=== PATIENT | male | born 1930 | race Caucasian/White ===

== ENCOUNTER 2018-04-10 13:17 | Inpatient (IN) | payer OTHER, MEDICARE ==
--- NOTE | 2018-04-10 13:50 | PDOC ---
History of Present Illness - General Chief Complaint: Lightheaded Stated Complaint: LIGHTHEADED, WEAKNESS Time Seen by Provider: 04/10/18 13:37 - History of Present Illness Initial Comments: 04/10/18 14:05 The patient is an 87 year old male with a history of HTN, HLD, Thyroid dysfunction who presents for evaluation of lightheadedness, fevers, and generalized weakness. The patient is accompanied by family who assists in providing the history. They note a 1 day history of generalized weakness and subjective fevers. They note that when the patient got up this morning, he experienced severe lightheadedness and generalized weakness prompting his presentation to the ED for further evaluation. He otherwise denies chills, SOB , chest pain, nausea, vomiting, abdominal pain, or changes with urination or bowel movements. Past History - Past Medical History Allergies/Adverse Reactions: Allergies Allergy/AdvReac Type Severity Reaction Status Date / Time No Known Drug Allergies Allergy Verified 04/10/18 13:24 Home Medications: Ambulatory Orders Atenolol [Tenormin -] 50 mg PO DAILY 07/10/14 Atorvastatin Ca [Lipitor -] 20 mg PO HS 07/10/14 Cholecalciferol (Vitamin D3) [Children's Replesta] 14,000 unit PO DAILY Finasteride [Proscar -] 5 mg PO HS 07/10/14 Levothyroxine [Synthroid -] 25 mcg PO DAILY 07/10/14 Silodosin [Rapaflo] 8 mg PO HS 07/10/14 Amlodipine Bes/Olmesartan Med [Amlodipine-Olmesartan 5-40 mg] 1 each PO DAILY COPD: No HTN: Yes Hypercholesterolemia: Yes Thyroid Disease: Yes - Suicide/Smoking/Psychosocial Hx Smoking History: Never smoked Have you smoked in the past 12 months: No Hx Alcohol Use: Yes (RARE) Substance Use Type: Alcohol Review of Systems - Review of Systems Comments:: 04/10/18 14:07 Constitutional: Subjective fever, Generalized weakness. No chills, malaise HEENT: No Rhinorrhea, nasal congestion, visual changes Cardiovascular: Lightheadedness. No chest pain, syncope, palpitations, Respiratory: No Cough, SOB, Hemoptysis, Gastrointestinal: No Abdominal pain, Nausea, Vomiting, Constipation, Diarrhea, Melena Genitourinary: No Dysuria, Frequency, Urgency, Hesitancy, Hematuria, Flank pain Musculoskeletal: No Myalgia, arthralgia Skin: No rashes, itching, bruising, pallor Neurologic: No Headache, Dizziness, Numbness, or Tingling Psychiatric: No Hallucinations. No SI or HI *Physical Exam - Vital Signs Last Vital Signs Temp Pulse Resp BP Pulse Ox 99 F 77 18 135/59 94 L 04/10/18 13:23 04/10/18 13:23 04/10/18 13:23 04/10/18 13:23 04/10/18 13:23 - Physical Exam Comments: 04/10/18 14:08 General Appearance: Nourished. No Apparent Distress HEENT: No Pharyngeal Erythema, Tonsillar Exudate, Tonsillar Erythema Neck: No Cervical Lymphadenopathy Respiratory/Chest: Lungs Clear, Normal Breath Sounds. No Crackles, Rales, Rhonchi, Wheezing Cardiovascular: Regular Rhythm, Regular Rate. 2/6 systolic murmur noted on exam. No Gallops, Rubs Gastrointestinal/Abdominal: Normal Bowel Sounds, Soft. No Guarding, Rebound, Tenderness Musculoskeletal: No CVA Tenderness Extremity: Normal Capillary Refill Integumentary: Normal Color, Dry, Warm Neurologic: Fully Oriented, Alert, Normal Mood/Affect, Normal Response, Heart Score/ECG Review #1 ECG reviewed & interpreted by me at: 14:10 General ECG Interpretation: Sinus Rhythm, Normal Rate, Normal Intervals, No acute ischemic changes ED Treatment Course - LABORATORY CBC & Chemistry Diagram: 04/11/18 06:00 04/11/18 06:00 Medical Decision Making - Medical Decision Making 04/10/18 14:10 The patient is an 87 year old male with a history of HTN, HLD, Thyroid dysfunction who presents for evaluation of lightheadedness, fevers, and generalized weakness. Differential includes but is not limited to: ACS, Arrhythmia, Infectious, Metabolic Derangement. Given the patient's history and physical exam, we will obtain a cbc, cmp, mag, phos, troponin, tsh, ekg, chest plain film to evaluate further for possible etiologies. We will treat with iv fluids and continue to monitor and reassess while here in the ED. 04/10/18 16:06 CBC demonstrates a small elevation in wbc. cmp, mag, phos, troponin, tsh are unremarkable. UA is unremarkable. Chest plain film is unremarkable. Given the patient's episodes of weakness and lightheadedness as well as risk factors, we believe he requires admission for further management. We discussed the case with Dr. Steiner who accepted the patient for admission. *DC/Admit/Observation/Transfer Diagnosis at time of Disposition: Lightheadedness, Dehydration - Discharge Dispostion Condition at time of disposition: Stable Decision to Admit order: Yes - Referrals - Patient Instructions - Post Discharge Activity
[2018-04-10] MEDS ORDERED: SODIUM CHLORIDE 1,000 ML IV STA (13:55)
--- NOTE | 2018-04-10 14:29 | PDOC ---
Attending Attestation - Resident Resident Name: Eddi Ovalle - ED Attending Attestation I have performed the following: I have examined & evaluated the patient, The case was reviewed & discussed with the resident, I agree w/resident's findings & plan, Exceptions are as noted - HPI HPI: 04/10/18 14:37 87-year-old male with history of hypertension, hyperlipidemia, thyroid disorder presents with generalized weakness, tactile fevers, lightheadedness since yesterday. The patient did not his recent illnesses or sick contacts. States he was in his usual state of health approximately 2 days ago. Yesterday, started developing feeling generally weak and lightheaded and difficulty ambulating. Denies chest pain or shortness of breath. Because of the symptoms, came to the ER. - Physicial Exam PE: 04/10/18 14:38 GENERAL: Awake, alert, and fully oriented, in no acute distress HEAD: No signs of trauma EYES: EOMI, sclera anicteric, conjunctiva clear ENT: Auricles normal inspection, hearing grossly normal, nares patent, NECK: Normal ROM, supple, LUNGS: Breath sounds equal, clear to auscultation bilaterally. No wheezes, and no crackles HEART: Regular rate and rhythm, normal S1 and S2, no murmurs, rubs or gallops ABDOMEN: Soft, nontender No guarding, no rebound. No masses EXTREMITIES: Normal range of motion, no edema. No clubbing or cyanosis. No cords, erythema, or tenderness NEUROLOGICAL: Cranial nerves II through XII grossly intact. Normal speech, SKIN: Warm, Dry, normal turgor, no rashes or lesions noted. - Medical Decision Making 04/10/18 14:38 Vital Signs Temp Pulse Resp BP Pulse Ox 99 F 77 18 135/59 94 L 04/10/18 13:23 04/10/18 13:23 04/10/18 13:23 04/10/18 13:23 04/10/18 13:23 87-year-old male presents with general weakness, tactile fevers and lightheadedness. I suspect patient may have an underlying infection such as urinary tract infection. Obtain labs, urinalysis, chest x-ray. Differential includes metabolic disarray and cardiac. EKG. Give IV fluids and reassess. 04/10/18 15:38 CBC, BMP 04/10/18 14:08 04/10/18 14:08 CMP Sodium 135 mmol/L (136-145) L 04/10/18 14:08 Potassium 4.5 mmol/L (3.5-5.1) 04/10/18 14:08 Chloride 99 mmol/L (98-107) 04/10/18 14:08 Carbon Dioxide 23 mmol/L (21-32) 04/10/18 14:08 Anion Gap 13 MMOL/L (8-16) 04/10/18 14:08 BUN 22 mg/dL (7-18) H 04/10/18 14:08 Creatinine 1.4 mg/dL (0.55-1.3) H 04/10/18 14:08 Creat Clearance w eGFR 47.94 (>60) 04/10/18 14:08 Random Glucose 124 mg/dL (74-106) H 04/10/18 14:08 Calcium 8.1 mg/dL (8.5-10.1) L 04/10/18 14:08 Phosphorus 1.6 mg/dL (2.5-4.9) L 04/10/18 14:08 Magnesium 1.9 mg/dL (1.8-2.4) 04/10/18 14:08 Total Bilirubin 1.2 mg/dL (0.2-1.0) H 04/10/18 14:08 AST 34 U/L (15-37) 04/10/18 14:08 ALT 38 U/L (13-61) 04/10/18 14:08 Alkaline Phosphatase 86 U/L (45-117) 04/10/18 14:08 Creatine Kinase 148 IU/L (26-308) 04/10/18 14:08 Troponin I 0.04 ng/ml (0.00-0.05) 04/10/18 14:08 Total Protein 6.9 g/dl (6.4-8.2) 04/10/18 14:08 Albumin 3.5 g/dl (3.4-5.0) 04/10/18 14:08 TSH 0.77 uIU/ml (0.358-3.74) 04/10/18 14:08 Urine Test Results Urine Color Yellow 04/10/18 14:08 Urine Appearance Clear 04/10/18 14:08 Urine pH 5.0 (5.0-8.0) 04/10/18 14:08 Ur Specific [place] 1.023 (1.001-1.035) 04/10/18 14:08 Urine Protein 2+ (NEGATIVE) H 04/10/18 14:08 Urine Glucose (UA) Negative (NEGATIVE) 04/10/18 14:08 Urine Ketones Negative (NEGATIVE) 04/10/18 14:08 Urine Blood 1+ (NEGATIVE) H 04/10/18 14:08 Urine Nitrite Negative (NEGATIVE) 04/10/18 14:08 Urine Bilirubin Negative (<2.0 mg/dL) 04/10/18 14:08 Ur Leukocyte Esterase Negative (NEGATIVE) 04/10/18 14:08 Urine Mucus Few 04/10/18 14:08 Creatinin is 1.4 (old or new?) Given pt's overall unwell appearance, pt would benefit from IV fluids and observation. Will keep patient in the hospital. Heart Score/ECG Review #1 ECG reviewed & interpreted by me at: 13:55 04/10/18 14:29 NSR 72, Q wave III, avF, submm STD I, no pattie, T wave flat V6, QTC 385 msec.
[2018-04-10 14:30] LABS: BASO % 0.4 % (0-2.0); HEMATOCRIT 38.2 % (35.4-49); LYMPH % 10.4 % (8-40); MCH 30.4 pg (25.7-33.7); MEAN CELL VOLUME 89.5 fl (80-96); MEAN PLT VOLUME 7.5 fl (7.5-11.1); MONO % 7.1 % (3.8-10.2); NEUT % 82.1 % (42.8-82.8); PLATELET COUNT 142 K/MM3 (134-434); RBC 4.27 M/mm3 (4.00-5.60); RDW 14.6 % (11.9-15.9); WHITE BLOOD COUNT 11.9 K/mm3 (4.0-10.0)
[2018-04-10 14:34] LABS: URINE APPEARANCE CLEAR; URINE BILIRUBIN NEGATIVE (<2.0 mg/dL); URINE COLOR YELLOW; URINE GLUCOSE (UA) NEGATIVE (NEGATIVE); URINE KETONE NEGATIVE (NEGATIVE); URINE LEUK ESTERASE NEGATIVE (NEGATIVE); URINE NITRITE NEGATIVE (NEGATIVE)
[2018-04-10 14:40] LABS: URINE PROTEIN 2+ (NEGATIVE)
[2018-04-10 14:54] LABS: URINE MUCUS FEW
[2018-04-10 15:01] LABS: ALBUMIN 3.5 g/dl (3.4-5.0); ANION GAP 13 MMOL/L (8-16); BLOOD UREA NITROGEN 22 mg/dL (7-18); CALCIUM 8.1 mg/dL (8.5-10.1); CHLORIDE 99 mmol/L (98-107); CO2 23 mmol/L (21-32); CREATININE 1.4 mg/dL (0.55-1.3); GLUCOSE,RANDOM 124 mg/dL (74-106); PHOSPHOROUS 1.6 mg/dL (2.5-4.9); SGPT/ALT 38 U/L (13-61); SODIUM 135 mmol/L (136-145)
[2018-04-10 15:11] LABS: ALK PHOS 86 U/L (45-117); BILIRUBIN,TOTAL 1.2 mg/dL (0.2-1.0); TOT PROT 6.9 g/dl (6.4-8.2)
[2018-04-10 15:13] LABS: MAGNESIUM 1.9 mg/dL (1.8-2.4); POTASSIUM 4.5 mmol/L (3.5-5.1); SGOT/AST 34 U/L (15-37)
[2018-04-10] MEDS ORDERED: predniSONE 20 MG TABLET (UD) ONE (15:24)
[2018-04-10] MEDS ORDERED: ACETAMINOPHEN 1000 MG/100 ML VIAL (NON FORMULARY) IVPB ONE (17:30)
[2018-04-10] MEDS ORDERED: ACETAMINOPHEN INJECTION 100 ML IVPB ONE (17:35)
--- NOTE | 2018-04-10 21:08 | EKG ---
Test Reason : Blood Pressure : / mmHG Vent. Rate : 072 BPM Atrial Rate : 072 BPM P-R Int : 158 ms QRS Dur : 082 ms QT Int : 352 ms P-R-T Axes : 023 -12 059 degrees QTc Int : 385 ms NORMAL SINUS RHYTHM INFERIOR INFARCT , AGE UNDETERMINED ANTERIOR INFARCT , AGE UNDETERMINED ABNORMAL ECG NO PREVIOUS ECGS AVAILABLE Confirmed by ARIS REESE MD ([id number]) on 04/10/2018 9:08:40 PM Referred By: Confirmed By:ARIS REESE MD
[2018-04-10] MEDS: ATORVASTATIN CA 10 MG TABLET (FP) PO SCH (21:38)
[2018-04-11] MEDS: ACETAMINOPHEN 325 MG TABLET (FP) PO PRN ×3 (05:25→18:43)
[2018-04-11 05:31] VITALS: BMI 24.7
[2018-04-11 06:36] LABS: HEMATOCRIT 36.4 % (35.4-49); HEMOGLOBIN 12.3 GM/dL (11.7-16.9); MCH 29.8 pg (25.7-33.7); MCHC 33.7 g/dl (32.0-35.9); MEAN CELL VOLUME 88.6 fl (80-96); MEAN PLT VOLUME 7.5 fl (7.5-11.1); PLATELET COUNT 131 K/MM3 (134-434); RBC 4.11 M/mm3 (4.00-5.60); RDW 14.6 % (11.9-15.9)
[2018-04-11] MEDS: LEVOTHYROXINE NA 25 MCG TABLET (FP) PO SCH (06:41)
[2018-04-11 07:11] LABS: BLOOD UREA NITROGEN 19 mg/dL (7-18); CALCIUM 7.7 mg/dL (8.5-10.1); CHLORIDE 102 mmol/L (98-107); GLUCOSE,RANDOM 113 mg/dL (74-106); POTASSIUM 3.5 mmol/L (3.5-5.1); SODIUM 135 mmol/L (136-145)
[2018-04-11 07:16] LABS: ALK PHOS 71 U/L (45-117); ANION GAP 11 MMOL/L (8-16); BILIRUBIN,TOTAL 1.2 mg/dL (0.2-1.0); CHOLESTEROL 126 mg/dL (50-200); CO2 22 mmol/L (21-32); CREATININE 1.3 mg/dL (0.55-1.3); HDL CHOLESTEROL 66 mg/dL (40-60); SGOT/AST 31 U/L (15-37); SGPT/ALT 34 U/L (13-61); TRIGLYCERIDES 77 mg/dL (0-150)
--- NOTE | 2018-04-11 08:07 | HP ---
Admitting History and Physical - Past Medical History Cardiovascular: Yes: HTN, Hyperlipdemia Gastrointestinal: No: Diverticulitis, Inflamatory Bowel Disease, Irritable Bowel Disease, Pancreatitis Renal/: Yes: BPH. No: Renal Inusuff Heme/Onc: No: Anemia Endocrine: Yes: Hypothyroidism. No: Diabetes Mellitus - Smoking History Smoking history: Never smoked Have you smoked in the past 12 months: No Aproximately how many cigarettes per day: 0 - Alcohol/Substance Use Hx Alcohol Use: Yes (RARE) Home Medications - Allergies Allergies/Adverse Reactions: Allergies Allergy/AdvReac Type Severity Reaction Status Date / Time No Known Drug Allergies Allergy Verified 04/10/18 13:24 - Home Medications Home Medications: Ambulatory Orders Atenolol [Tenormin -] 50 mg PO DAILY 07/10/14 Atorvastatin Ca [Lipitor -] 20 mg PO HS 07/10/14 Cholecalciferol (Vitamin D3) [Children's Replesta] 14,000 unit PO DAILY Finasteride [Proscar -] 5 mg PO HS 07/10/14 Levothyroxine [Synthroid -] 25 mcg PO DAILY 07/10/14 Silodosin [Rapaflo] 8 mg PO HS 07/10/14 Amlodipine Bes/Olmesartan Med [Amlodipine-Olmesartan 5-40 mg] 1 each PO DAILY Review of Systems - Review of Systems Constitutional: reports: Fever, Malaise, Weakness Cardiovascular: denies: Chest Pain Respiratory: denies: Cough Gastrointestinal: denies: Abdominal Pain, Melena, Nausea, Vomiting Genitourinary: denies: Burning, Dysuria, Flank Pain Physical Examination Vital Signs: Vital Signs Temperature 100.1 F H 04/11/18 05:50 Pulse Rate 97 H 04/11/18 05:50 Respiratory Rate 18 04/11/18 05:50 Blood Pressure 150/57 04/11/18 05:50 O2 Sat by Pulse Oximetry (%) 95 04/10/18 18:45 Cardiovascular: Yes: S1, S2 Respiratory: Yes: Regular, CTA Bilaterally Gastrointestinal: Yes: Normal Bowel Sounds, Soft, Distention. No: Tenderness Edema: No Neurological: Yes: Alert, Oriented, Weakness Labs: CBC, BMP 04/11/18 06:00 04/11/18 06:00 Imaging - Results Chest X-ray: Report Reviewed Problem List - Problems (1) Fever Assessment/Plan: -BC -ID consult -US of Abdomen -ABX per ID Code(s): R50.9 - FEVER, UNSPECIFIED (2) Weakness Assessment/Plan: -as above Code(s): R53.1 - WEAKNESS (3) HTN (hypertension) Assessment/Plan: -monitor on meds Code(s): I10 - ESSENTIAL (PRIMARY) HYPERTENSION (4) Abnormal EKG Assessment/Plan: -Obtain old ekg -CE -Cardio Code(s): R94.31 - ABNORMAL ELECTROCARDIOGRAM [ECG] [EKG]
[2018-04-11] MEDS ORDERED: ATENOLOL 50 MG TABLET (FP) PO SCH (10:00)
[2018-04-11] MEDS ORDERED: FINASTERIDE 5 MG TABLET (FP) PO SCH (10:00)
[2018-04-11] MEDS ORDERED: amLODIPine BESYLATE 5 MG TABLET (FP) PO SCH (10:00)
[2018-04-11] MEDS ORDERED: LOSARTAN POTASSIUM 50 MG TABLET (FP) PO SCH (10:00)
[2018-04-11] MEDS: D5-NS + 20 MEQ KCL - 20 MEQ/1,000 ML INFUS.BAG IV SCH (10:30)
--- NOTE | 2018-04-11 10:55 | PN ---
Progress Note (short form) - Note Progress Note: ID consult dictated fuo no tick/mosquito bites denies cough acute onset fever/weakness no diarrhea no dysuria no travel cultures babesia smear empiric ceftriaxone f/u cultures esr/crp
--- NOTE | 2018-04-11 11:32 | CONSULT ---
Consult - text type - Consultation Consultation Note: Renal Consult for DINORAH/CKD and Hyponatremia This is a 87 year old gentleman with hx of Hypertension, Hyperlipidemia , Hypothyrodism presented with weakness and fevers and admitted for suspected sepsis with Cr of 1.4 and Na of 135. Pt denies any sob, CP, abd pain, N/V/D. Reports feeling a little better today s/p Abx. Denies any history of CKD, Kidney stones. No recent contrast exposure. Does report NSIAD use at home. On medication for BPH. PMhx: as above Allergies: NKDA Family Hx: NC Social hx: No T/A/D ROS: as per HPI Home Medications Medication Instructions Recorded Atenolol [Tenormin -] 50 mg PO DAILY 07/10/14 Atorvastatin Ca [Lipitor -] 20 mg PO HS 07/10/14 Cholecalciferol (Vitamin D3) 14,000 unit PO DAILY 07/10/14 [Children's Replesta] Finasteride [Proscar -] 5 mg PO HS 07/10/14 Levothyroxine [Synthroid -] 25 mcg PO DAILY 07/10/14 Silodosin [Rapaflo] 8 mg PO HS 07/10/14 Amlodipine Bes/Olmesartan Med 1 each PO DAILY 04/10/18 [Amlodipine-Olmesartan 5-40 mg] Vital Signs Temperature 99.4 F 04/11/18 10:31 Pulse Rate 76 04/11/18 10:31 Respiratory Rate 18 04/11/18 10:31 Blood Pressure 152/71 04/11/18 10:31 O2 Sat by Pulse Oximetry (%) 93 L 04/11/18 09:00 Intake & Output 04/08/18 04/09/18 04/10/18 04/11/18 23:59 23:59 23:59 23:59 Intake Total 350 Output Total 300 200 Balance -300 150 Weight 61.377 kg NAD awake and alert RRR, No M/R Dec BS, no rales or wheeze soft NT/ND, no rebound or guarding, no CVA tenderness No bladder distension no LE edema, clubbing or cyanosis CBC, BMP 04/11/18 06:00 04/11/18 06:00 Current Medications Acetaminophen (Tylenol -) 650 mg PO Q6H PRN PRN Reason: FEVER Last Admin: 04/11/18 05:25 Dose: 650 mg Amlodipine Besylate (Norvasc -) 5 mg PO DAILY [facility] Last Admin: 04/11/18 09:46 Dose: 5 mg Atenolol (Tenormin -) 50 mg PO DAILY [facility] Last Admin: 04/11/18 09:47 Dose: 50 mg Atorvastatin Calcium (Lipitor -) 10 mg PO HS [facility] Last Admin: 04/10/18 21:38 Dose: 10 mg Finasteride (Proscar -) 5 mg PO DAILY [facility] Last Admin: 04/11/18 09:46 Dose: 5 mg Dextrose/Sodium Chloride (Dextrose 5%-Normal Saline+20 Meq Kcl -) 20 meq in 1, 000 mls @ 75 mls/hr IV ASDIR [facility] Levothyroxine Sodium (Synthroid -) 25 mcg PO DAILY@0700 [facility] Last Admin: 04/11/18 06:41 Dose: 25 mcg Losartan Potassium (Cozaar -) 50 mg PO DAILY [facility] Last Admin: 04/11/18 09:46 Dose: 50 mg 87 year old gentleman with hx of Hypertension, Hyperlipidemia, Hypothyrodism presented with weakness and fevers and admitted for suspected sepsis with Cr of 1.4 and Na of 135. #Fever #DINORAH vs. CKD #Hyponatremia #Hypertension #Hyperlpidemia Will need to obtain baseline labs from outpatient fro comparison Check Urine studies for FeNa, FeUrea, UPCR and Renal US to work up CKD/DINORAH Agree with trial of IVF Hyponatremia likely due to mild mild volume depeltion in setting of fevers check Urine osm, Urine Na no indication for 3% saline Continue ARB for now Continue Norvasc and Atenolol for BP Check Lipid profile in AM Thank you Will follow Du Hernandez DO
[2018-04-11] MEDS ORDERED: DEXTROSE 5%-WATER 100 ML IVPB ONE (13:37)
[2018-04-11] MEDS: CEFTRIAXONE 2 GM in DEXTROSE 5%-WATER 100 ML IVPB SCH (13:39)
--- NOTE | 2018-04-11 14:24 | ECHO ---
Name: SAFIA LAGUERRE Exam:Adult Echocardiogram Study Date: 04/11/2018 12:04 PM Age: 87 yrs Reason For Study: pos troponin Height: 62 in Weight: 135 lb BSA: 1.6 m2 MMode/2D Measurements & Calculations IVSd: 1.0 cm Ao root diam: 3.3 cm LVIDd: 4.8 cm LA dimension: 5.0 cm LVIDs: 2.7 cm ACS: 2.1 cm LVPWd: 1.0 cm IVSs: 1.5 cm LVPWs: 1.3 cm EDV(Teich): 107.6 ml ESV(Teich): 26.2 ml Doppler Measurements & Calculations MV E max jeremías: 55.8 cm/sec Ao V2 max: 184.6 cm/sec MV A max jeremías: 94.8 cm/sec Ao max P.6 mmHg MV E/A: 0.59 Ao V2 mean: 127.5 cm/sec Ao mean P.4 mmHg Ao V2 VTI: 35.0 cm MR max jeremías: 509.6 cm/sec TR max jeremías: 293.2 cm/sec MR max P.9 mmHg TR max P.4 mmHg Med Peak E' Jeremías: 5.7 cm/sec Med E/e': 9.8 Lat Peak E' Jeremías: 4.7 cm/sec Lat E/e': 11.8 Procedure The study was technically adequate with some images being suboptimal in quality. Left Ventricle The left ventricle is normal in size. The left ventricle is hyperdynamic. Ejection Fraction = 65-70%. Grade I diastolic dysfunction, (abnormal relaxation pattern). Right Ventricle The right ventricle is mildly dilated. The right ventricular systolic function is normal. Atria The left atrium is moderately dilated. The right atrium is mildly dilated. Mitral Valve The mitral valve is normal. There is moderate mitral regurgitation. Tricuspid Valve The tricuspid valve is not well visualized. There is moderate tricuspid regurgitation. Right ventricu lar systolic pressure is elevated at 30-40mmHg. Aortic Valve The aortic valve opens well. There is mild aortic sclerosis.;. The aortic valve is trileaflet. Trace aortic regurgitation. Pulmonic Valve The pulmonic valve is not well visualized. There is no pulmonic valvular regurgitation. Great Vessels The aortic root is normal size. Pericardium/Pleura There is no pericardial effusion. Interpretation Summary There is no comparison study available. The left ventricle is hyperdynamic. The left atrium is moderately dilated. The right atrium is mildly dilated. Grade I diastolic dysfunction, (abnormal relaxation pattern). There is moderate mitral regurgitation. Trace aortic regurgitation. The right ventricle is mildly dilated. The left ventricle is normal in size. There is moderate tricuspid regurgitation. José Miguel Dick MD 04/11/2018 02:23 PM
--- NOTE | 2018-04-11 14:37 | CONS ---
DATE OF CONSULTATION: DATE OF DICTATION: 04/11/2018 REQUESTING PHYSICIAN: Hayden Szymanski MD HISTORY: This is an 87-year-old gentleman originally from [facility] who presents with weakness and fevers for 2 days. He overall reports feeling better. He apparently had loss of appetite at home. On Wednesday night he felt dizzy. He had lost his balance at home and sustained a fall as well. He has chronic constipation. There has been no travel, in December he went to [facility], apparently since that time. No sick contacts. He reports myalgias. He has had no cough or shortness of breath. He denies any dysuria. PAST MEDICAL HISTORY: Hypertension, hyperlipidemia, hypothyroidism. He does have a history of BPH as well. PAST SURGICAL HISTORY: There is no surgical history. ALLERGIES: He has no known drug allergies. MEDICATIONS: At home include atenolol, atorvastatin, vitamin D, fentanyl, levothyroxine, silodosin, amlodipine, olmesartan. FAMILY HISTORY: Noncontributory. SOCIAL HISTORY: There is no history of tobacco, alcohol, or substance use. He lives at home with his family. REVIEW OF SYSTEMS: He is awake and alert. He denies any chest pain, abdominal pain, nausea, vomiting, diarrhea, or dysuria. He denies any tick bites or mosquito bites. He has not spent any time outside. He does not garden. PHYSICAL EXAMINATION: General: He is awake and alert. Vital Signs: Temperature 99.4, pulse 76, blood pressure 152/71, respiratory rate 18. HEENT: He is normocephalic. Eyes are anicteric. He has good dentition. Neck: Supple. Lungs: Clear to auscultation. Heart: Regular rate and rhythm. Abdomen: Soft and nontender. Extremities: Without edema. DIAGNOSTIC DATA: White count on admission 11.9 and 12 today, hemoglobin 12.3, platelets 131. BUN 22 and creatinine 1.4 on admission and BUN 19 and creatinine 1.3 this morning with a total bilirubin at 1.2. Normal LFTs. Albumin is 3. Troponin is 0.18. Urinalysis has 1 white cell. He was transferred to telemetry for the positive troponin. Chest x-ray by report is unremarkable. In summary, this is an elderly man admitted with fever of unclear source as well as hyponatremia and dehydration. Would recommend cultures. Would start him on ceftriaxone at this time. He is being monitored on telemetry for positive troponins. He appears to be somewhat prerenal and dehydrated so would recommend IV fluids as well. Would check a smear for Babesia as his total bilirubin is slightly elevated. As well this could all be a viral syndrome. Given the acuity and severity of his symptoms, would recommend empiric antibiotic treatment at this time. Further recommendations to follow. Abby [id number]
--- NOTE | 2018-04-11 16:27 | CON.CARD ---
Consult Consult Specialty:: Cardiology Reason for Consultation:: Troponin elevation - History of Present Illness History of Present Illness: 87 M without previous cardiac history is admitted with several days of fever weakness and malaise. He has mild DINORAH and hyponatremia and noted to have mildly elevated TP level with negative CPK MB. ECG and echocardiogram are normal. He reports no dyspnea, cough or chest pain. - History Source History Provided By: Patient, Medical Record - Past Medical History Cardio/Vascular: Yes: HTN, Hyperlipdemia Gastrointestinal: No: Diverticulitis, Inflamatory Bowel Disease, Irritable Bowel Disease, Pancreatitis Renal/: Yes: BPH. No: Renal Inusuff Endocrine: Yes: Hypothyroidism. No: Diabetes Mellitus - Alcohol/Substance Use Hx Alcohol Use: Yes (RARE) - Smoking History Smoking history: Never smoked Have you smoked in the past 12 months: No Aproximately how many cigarettes per day: 0 Home Medications - Allergies Allergies/Adverse Reactions: Allergies Allergy/AdvReac Type Severity Reaction Status Date / Time No Known Drug Allergies Allergy Verified 04/10/18 13:24 - Home Medications Home Medications: Ambulatory Orders Atenolol [Tenormin -] 50 mg PO DAILY 07/10/14 Atorvastatin Ca [Lipitor -] 20 mg PO HS 07/10/14 Cholecalciferol (Vitamin D3) [Children's Replesta] 14,000 unit PO DAILY Finasteride [Proscar -] 5 mg PO HS 07/10/14 Levothyroxine [Synthroid -] 25 mcg PO DAILY 07/10/14 Silodosin [Rapaflo] 8 mg PO HS 07/10/14 Amlodipine Bes/Olmesartan Med [Amlodipine-Olmesartan 5-40 mg] 1 each PO DAILY Review of Systems - Review of Systems Constitutional: reports: Chills, Fever, Lethargy, Malaise Eyes: reports: No Symptoms HENT: reports: No Symptoms Neck: reports: No Symptoms Cardiovascular: denies: Chest Pain, Edema, Palpitations, Shortness of Breath Respiratory: denies: Cough, Exercise Intolerance, SOB, SOB on Exertion Gastrointestinal: denies: Abdominal Pain, Bloating, Constipation Neurological: reports: No Symptoms Vital Signs: Vital Signs Temperature 103.1 F H 04/11/18 14:00 Pulse Rate 100 H 04/11/18 14:00 Respiratory Rate 20 04/11/18 14:00 Blood Pressure 147/73 04/11/18 14:00 O2 Sat by Pulse Oximetry (%) 93 L 04/11/18 09:00 Constitutional: Yes: Well Nourished, No Distress, Calm Eyes: Yes: Conjunctiva Clear, EOM Intact HENT: Yes: Atraumatic, Normocephalic Neck: Yes: Supple, Trachea Midline Respiratory: Yes: Regular, CTA Bilaterally Gastrointestinal: Yes: Normal Bowel Sounds, Soft Renal/: Yes: WNL JVD: No Carotid Bruit: No PMI: Non-Displaced Heart Sounds: Yes: S1, S2 Murmur: No: Systolic Murmur, Diastolic Murmur Extremities: Yes: WNL Edema: No - Other Data Labs, Other Data: CBC, BMP 04/11/18 06:00 04/11/18 06:00 Troponin, BNP 04/11/18 04/11/18 08:10 13:13 Troponin I 0.18 H* 0.18 H Troponin, BNP 04/11/18 04/11/18 08:10 13:13 Troponin I 0.18 H* 0.18 H NSR nl axis and interval no STT changes Echo: Report Reviewed Problem List - Problems (1) Fever Code(s): R50.9 - FEVER, UNSPECIFIED (2) Weakness Code(s): R53.1 - WEAKNESS Assessment/Plan Mildly elevated TP t without ECG or echocardiographic findings to suggest ischemia or injury. Unclear if truly ischemic but possibly in setting of increased demand. COntinue medical therapy for infection, HTN and continue with IV hydration. No indication for invasive cardiac testing at this time. Stress testing can be considered as an out patient after he has recovered from this illness. Will see as needed.
--- NOTE | 2018-04-11 20:10 | CONSULT ---
Consult - text type - Consultation Consultation Note: NEUROLOGY CONSULTATION is greatly appreciated: This 87 yo RH man lives with his in their daughter's home. His daughter is at the bedside and aides in the history. PMH sig for HTN, hypothyroidism and Chol. Maintained on: Atenolol 50 mg; Atorvastatin; Finasteride; Levothyroxine; Silodosin; and Amlodipine Bes/Olmesartan. Last few days has felt week and fatigued. Febrile. Yesterday, he became dizzy, diaphoretic and weak. He fell to the floor but denies LOC. Daughter noted the room was very hot. Brought to the ER where BP's were stable but WBC= 12 K and temps reached 103 F. Now on Ceftriaxone. DEVONTE: No evidence of external head trauma. No bruits. Cor regular. NEURO: MS/Speech: Normal. Fluent in Citizen Of [place]. CN II-XII: Normal without nystagmus Motor: No drit, tremor or cogwheeling. Normal strength, bulk and tone . Decreased KJ's. Absent AJ's. Toes downgoing. Coord: No FTN dystaxia. Sensory: Normal vibration feet. Gait: Deferred IMP: Non-focal neurological exam. Syncope. Probably Vasovagal. R/O cardiac arrhythmia. Exacerbated by Toxic-metabolic encephalopathy. SUGGEST: Continue antibiotics and hydration. Continue telemetry. Continue orthostatic BP's. CT of head (C-). Check TSH, T4 B12. Thank you very much, Scar Jacome MD
[2018-04-11] MEDS: ATORVASTATIN CA 10 MG TABLET (FP) PO SCH (21:10)
[2018-04-12] MEDS: D5-NS + 20 MEQ KCL - 20 MEQ/1,000 ML INFUS.BAG IV SCH ×2 (03:45→09:00)
[2018-04-12 06:08] LABS: BASO % 0.2 % (0-2.0); HEMATOCRIT 38.2 % (35.4-49); HEMOGLOBIN 12.5 GM/dL (11.7-16.9); LYMPH % 8.3 % (8-40); MCH 29.3 pg (25.7-33.7); MCHC 32.7 g/dl (32.0-35.9); MEAN CELL VOLUME 89.6 fl (80-96); MEAN PLT VOLUME 7.7 fl (7.5-11.1); MONO % 5.3 % (3.8-10.2); NEUT % 86.2 % (42.8-82.8); PLATELET COUNT 127 K/MM3 (134-434); RBC 4.26 M/mm3 (4.00-5.60); RDW 14.5 % (11.9-15.9); WHITE BLOOD COUNT 13.1 K/mm3 (4.0-10.0)
[2018-04-12] MEDS: LEVOTHYROXINE NA 25 MCG TABLET (FP) PO SCH ×2 (06:10→10:26)
[2018-04-12 06:40] LABS: ALBUMIN 2.9 g/dl (3.4-5.0); ANION GAP 13 MMOL/L (8-16); BLOOD UREA NITROGEN 17 mg/dL (7-18); CALCIUM 7.6 mg/dL (8.5-10.1); CHLORIDE 102 mmol/L (98-107); CO2 21 mmol/L (21-32); GLUCOSE,RANDOM 156 mg/dL (74-106); SODIUM 136 mmol/L (136-145)
[2018-04-12 06:48] LABS: CHOLESTEROL 131 mg/dL (50-200); HDL CHOLESTEROL 60 mg/dL (40-60); TRIGLYCERIDES 102 mg/dL (0-150)
[2018-04-12 07:00] LABS: ALK PHOS 77 U/L (45-117); BILIRUBIN,TOTAL 0.8 mg/dL (0.2-1); CREATININE 1.2 mg/dL (0.55-1.3); SGOT/AST 54 U/L (15-37); SGPT/ALT 47 U/L (13-61)
[2018-04-12] MEDS ORDERED: ACETAMINOPHEN 1000 MG/100 ML VIAL (NON FORMULARY) IVPB ONE (07:56)
[2018-04-12] MEDS ORDERED: DEXTROSE 5%-WATER 100 ML IVPB ONE (07:57)
--- NOTE | 2018-04-12 07:58 | HOSP ---
Subjective - Review of Symptoms General: Yes: Chills, Fatigue, Malaise Pulmonary: Yes: Dyspnea Cardiovascular: Yes: Other Gastrointestinal: Yes: Other Other Systems: chills since last night Physical Examination Vital Signs: Vital Signs Temperature 100.5 F H 04/12/18 05:38 Pulse Rate 89 04/12/18 05:38 Respiratory Rate 20 04/12/18 05:38 Blood Pressure 156/65 04/12/18 05:38 O2 Sat by Pulse Oximetry (%) 93 L 04/11/18 09:00 Constitutional: Yes: Well Nourished Eyes: Yes: WNL HENT: Yes: WNL Neck: Yes: WNL Respiratory: Yes: WNL, Cough Gastrointestinal: Yes: Normal Bowel Sounds Labs: CBC, BMP 04/12/18 05:30 04/12/18 05:30 Hospitalist Encounter Assessment: Patient is an 87 year old male with a significant past medical history of HTN, HLD, Thyroid dysfunction. He presents to the ED for evaluation of lightheadedness, fevers, and generalized weakness. Was called by primary RN to come assess patient for fever of 103.5 with chills and associated dyspnea. Per RN verbal report, patient was on room air and desated to 89%, oxygen applied at 3 liters. o2 sat on 3 liters 95%. On exam patient was l laying in the bed, in no acute distress. He is awake and alert. States he started to have chills since last night with general malaise. Denies shortness of breath or chest pain. Lungs clear to auscultation bilaterally, no wheezing, no evidence of congestion. patient noted to have a dry cough. Plan: Flu swab now chest xray stat lactic acid tylenol ivpb x 1 for fevers blood culture from 04/11/18 pending, will order another set since febrile now ua/uc ordered duoneb x 1 ravi woodson [place] probation officer [phone]
[2018-04-12] MEDS ORDERED: ALBUTEROL SO4 2.5/IPRATROPIUM 0.5 INH SOL 3 ML VIAL.NEB. NEB ONE (08:10)
--- NOTE | 2018-04-12 08:30 | PN ---
Progress Note, Physician History of Present Illness: chills - Current Medication List Current Medications: Active Medications Acetaminophen (Tylenol -) 650 mg PO Q6H PRN PRN Reason: FEVER Amlodipine Besylate (Norvasc -) 5 mg PO DAILY [facility] Atenolol (Tenormin -) 50 mg PO DAILY [facility] Atorvastatin Calcium (Lipitor -) 10 mg PO HS [facility] Finasteride (Proscar -) 5 mg PO DAILY [facility] Ceftriaxone Sodium 2 gm/ (Dextrose) 100 mls @ 100 mls/hr IVPB DAILY [facility]; Protocol Last Admin: 04/11/18 13:39 Dose: 100 mls/hr Dextrose/Sodium Chloride (Dextrose 5%-Normal Saline+20 Meq Kcl -) 20 meq in 1, 000 mls @ 75 mls/hr IV ASDIR [facility] Levothyroxine Sodium (Synthroid -) 25 mcg PO DAILY@0700 [facility] Losartan Potassium (Cozaar -) 50 mg PO DAILY [facility] - Objective Vital Signs: Vital Signs Temperature 100.5 F H 04/12/18 05:38 Pulse Rate 89 04/12/18 05:38 Respiratory Rate 20 04/12/18 05:38 Blood Pressure 156/65 04/12/18 05:38 O2 Sat by Pulse Oximetry (%) 93 L 04/11/18 09:00 Cardiovascular: Yes: S1, S2 Respiratory: Yes: Regular, CTA Bilaterally Gastrointestinal: Yes: Normal Bowel Sounds, Soft. No: Tenderness Labs: CBC, BMP 04/12/18 05:30 04/12/18 05:30 Problem List - Problems (1) Fever Assessment/Plan: -BC -ID consult -US of Abdomen -ABX per ID -FLU swab -CT SCAN Code(s): R50.9 - FEVER, UNSPECIFIED (2) Weakness Assessment/Plan: -as above Code(s): R53.1 - WEAKNESS (3) HTN (hypertension) Assessment/Plan: -monitor on meds Code(s): I10 - ESSENTIAL (PRIMARY) HYPERTENSION (4) Abnormal EKG Assessment/Plan: -Obtain old ekg -CE -Cardio Code(s): R94.31 - ABNORMAL ELECTROCARDIOGRAM [ECG] [EKG] (5) Elevated troponin Assessment/Plan: -maybe demans ischemia -cardio on case Code(s): R74.8 - ABNORMAL LEVELS OF OTHER SERUM ENZYMES
[2018-04-12] MEDS: CEFTRIAXONE 2 GM in DEXTROSE 5%-WATER 100 ML IVPB SCH (10:21)
[2018-04-12] MEDS: ATENOLOL 50 MG TABLET (FP) PO SCH (10:21)
[2018-04-12] MEDS: amLODIPine BESYLATE 5 MG TABLET (FP) PO SCH (10:21)
[2018-04-12] MEDS: FINASTERIDE 5 MG TABLET (FP) PO SCH (10:21)
[2018-04-12] MEDS: LOSARTAN POTASSIUM 50 MG TABLET (FP) PO SCH (10:21)
[2018-04-12] MEDS: ACETAMINOPHEN 325 MG TABLET (FP) PO PRN (12:33)
--- NOTE | 2018-04-12 13:52 | PN ---
Progress Note (short form) - Note Progress Note: cxr note for right upperlobe consolidation legionella antigen presumptive postive start azithromycin and pulm consult
--- NOTE | 2018-04-12 13:53 | PN ---
Progress Note (short form) - Note Progress Note: PULMONARY CONSULTATION DICTATED 03/12/18 IMP ACUTE HYPOXEMIC RESPIRATORY FAILURE RUL PNEUMONIA + LEGIONELLA URINARY ANTIGEN HTN +TROPONINS DINORAH PLAN ABX SUPPLEMENTAL O2 INHALED BRONCHODILATORS PRN MONITOR LYTES TREND TROPONIN F/U CHEST X-RAYS DR HUNT Problem List - Problems (1) Pneumonia Code(s): J18.9 - PNEUMONIA, UNSPECIFIED ORGANISM (2) Dehydration Code(s): E86.0 - DEHYDRATION (3) Elevated troponin Code(s): R74.8 - ABNORMAL LEVELS OF OTHER SERUM ENZYMES (4) Fever Code(s): R50.9 - FEVER, UNSPECIFIED (5) HTN (hypertension) Code(s): I10 - ESSENTIAL (PRIMARY) HYPERTENSION (6) Lightheadedness Code(s): R42 - DIZZINESS AND GIDDINESS (7) 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
[2018-04-12] MEDS ORDERED: AZITHROMYCIN IVPB 500 MG in DEXTROSE 5%-WATER - 250 ML IVPB SCH (14:00)
--- NOTE | 2018-04-12 15:04 | PN ---
Progress Note (short form) - Note Progress Note: Renal follow up for DINORAH Pt seen and examined at the bedside continues to have fevers no sob, cp, abd pain Vital Signs Temperature 98.4 F 04/12/18 10:00 Pulse Rate 69 04/12/18 10:00 Respiratory Rate 22 04/12/18 10:00 Blood Pressure 122/68 04/12/18 10:00 O2 Sat by Pulse Oximetry (%) 93 L 04/12/18 10:00 Intake & Output 04/09/18 04/10/18 04/11/18 04/12/18 23:59 23:59 23:59 23:59 Intake Total 530 1000 Output Total 300 540 500 Balance -300 -10 500 Weight 61.377 kg NAD RRR Dec BS soft NT/ND no LE edema CBC, BMP 04/12/18 05:30 04/12/18 05:30 Current Medications Acetaminophen (Tylenol -) 650 mg PO Q6H PRN PRN Reason: FEVER Last Admin: 04/12/18 12:33 Dose: 650 mg Amlodipine Besylate (Norvasc -) 5 mg PO DAILY [facility] Last Admin: 04/12/18 10:21 Dose: 5 mg Atenolol (Tenormin -) 50 mg PO DAILY [facility] Last Admin: 04/12/18 10:21 Dose: 50 mg Atorvastatin Calcium (Lipitor -) 10 mg PO HS [facility] Finasteride (Proscar -) 5 mg PO DAILY [facility] Last Admin: 04/12/18 10:21 Dose: 5 mg Ceftriaxone Sodium 2 gm/ (Dextrose) 100 mls @ 100 mls/hr IVPB DAILY [facility]; Protocol Last Admin: 04/12/18 10:21 Dose: 100 mls/hr Dextrose/Sodium Chloride (Dextrose 5%-Normal Saline+20 Meq Kcl -) 20 meq in 1, 000 mls @ 75 mls/hr IV ASDIR [facility] Azithromycin 500 mg/ Dextrose 250 mls @ 250 mls/hr IVPB DAILY [facility] Levothyroxine Sodium (Synthroid -) 25 mcg PO DAILY@0700 [facility] Last Admin: 04/12/18 10:26 Dose: 25 mcg Losartan Potassium (Cozaar -) 50 mg PO DAILY [facility] Last Admin: 04/12/18 10:21 Dose: 50 mg 87 year old gentleman with hx of Hypertension, Hyperlipidemia, Hypothyrodism presented with weakness and fevers and admitted for suspected sepsis with Cr of 1.4 and Na of 135. #Fever secondary to PNA #DINORAH vs. CKD #Hyponatremia #Hypertension #Hyperlpidemia Renal function slighly improved urine studies consistent with pr-renal injury continue IVF Continue Abx as per ID CT scan results noted Du Hernandez DO
--- NOTE | 2018-04-12 18:02 | PN ---
Progress Note (short form) - Note Progress Note: continued fevers repeat cxray with RUL infiltrate confirmed on ct scan Legionella urinary antigen positive zithromax added and just give Vital Signs Period Temp Pulse Resp BP Sys/Lira Pulse Ox Last 24 Hr 98.4 F-103.1 F 63-89 18-22 118-156/51-70 85-93 cor-rrr lungs decreased bs at bases abd soft,nt ext no edema CBC, BMP 04/12/18 05:30 04/12/18 05:30 Microbiology 04/11/18 20:00 Urine For Antigen Detection Legionella Antigen - Final 04/11/18 20:00 Urine For Antigen Detection Streptococcus pneumoniae Antigen (M - Final 04/11/18 13:56 Blood - Peripheral Venous Blood Culture - Preliminary NO GROWTH OBTAINED AFTER 24 HOURS, INCUBATION TO CONTINUE FOR 4 DAYS. 04/11/18 13:28 Blood - Peripheral Venous Blood Culture - Preliminary NO GROWTH OBTAINED AFTER 24 HOURS, INCUBATION TO CONTINUE FOR 4 DAYS. 04/12/18 08:00 Nasopharyngeal Swab Influenza Types A,B Antigen - Final 04/12/18 08:00 Nasopharyngeal Swab - Final 04/11/18 08:05 Blood - Peripheral Venous Blood Culture - Preliminary NO GROWTH OBTAINED AFTER 24 HOURS, INCUBATION TO CONTINUE FOR 4 DAYS. 04/11/18 08:10 Blood - Peripheral Venous Blood Culture - Preliminary NO GROWTH OBTAINED AFTER 24 HOURS, INCUBATION TO CONTINUE FOR 4 DAYS. 04/11/18 11:06 Blood - Peripheral Venous Blood Parasites Smear - Final 04/10/18 14:08 Urine - Urine Clean Catch Urine Culture - Final Contaminated: Please Repeat a/p legionella pneumonia continue rocephin/zithromax today will switch to levaquin in am sputum for legionella ordered
[2018-04-12] MEDS: ATORVASTATIN CA 10 MG TABLET (FP) PO SCH (21:55)
[2018-04-12] MEDS: LATANOPROST 0.005% OPHTH SOLN 2.5ML BOTTLE OD SCH (22:53)
[2018-04-13] MEDS: LEVOTHYROXINE NA 25 MCG TABLET (FP) PO SCH ×2 (06:18→07:05)
[2018-04-13 07:11] LABS: BASO % 0.2 % (0-2.0); HEMATOCRIT 37.4 % (35.4-49); HEMOGLOBIN 12.3 GM/dL (11.7-16.9); LYMPH % 4.5 % (8-40); MCH 29.2 pg (25.7-33.7); MCHC 32.9 g/dl (32.0-35.9); MEAN CELL VOLUME 88.7 fl (80-96); MONO % 4.9 % (3.8-10.2); NEUT % 90.4 % (42.8-82.8); PLATELET COUNT 142 K/MM3 (134-434); RBC 4.21 M/mm3 (4.00-5.60); RDW 14.6 % (11.9-15.9)
[2018-04-13 07:41] LABS: CALCIUM 7.5 mg/dL (8.5-10.1); CHLORIDE 99 mmol/L (98-107); POTASSIUM 3.9 mmol/L (3.5-5.1); SODIUM 133 mmol/L (136-145)
[2018-04-13 07:45] LABS: ALBUMIN 2.6 g/dl (3.4-5.0); ALK PHOS 84 U/L (45-117); ANION GAP 8 MMOL/L (8-16); BILIRUBIN,TOTAL 0.7 mg/dL (0.2-1); BLOOD UREA NITROGEN 16 mg/dL (7-18); CO2 26 mmol/L (21-32); CREATININE 1.2 mg/dL (0.55-1.3); GLUCOSE,RANDOM 128 mg/dL (74-106); MAGNESIUM 1.9 mg/dL (1.8-2.4); PHOSPHOROUS 1.9 mg/dL (2.5-4.9); SGOT/AST 55 U/L (15-37); SGPT/ALT 44 U/L (13-61)
--- NOTE | 2018-04-13 08:27 | PN ---
Progress Note, Physician History of Present Illness: chills - Current Medication List Current Medications: Active Medications Acetaminophen (Tylenol -) 650 mg PO Q6H PRN PRN Reason: FEVER Last Admin: 04/12/18 12:33 Dose: 650 mg Amlodipine Besylate (Norvasc -) 5 mg PO DAILY [facility] Last Admin: 04/12/18 10:21 Dose: 5 mg Atenolol (Tenormin -) 50 mg PO DAILY [facility] Last Admin: 04/12/18 10:21 Dose: 50 mg Atorvastatin Calcium (Lipitor -) 10 mg PO HS [facility] Last Admin: 04/12/18 21:55 Dose: 10 mg Finasteride (Proscar -) 5 mg PO DAILY [facility] Last Admin: 04/12/18 10:21 Dose: 5 mg Dextrose/Sodium Chloride (Dextrose 5%-Normal Saline+20 Meq Kcl -) 20 meq in 1, 000 mls @ 75 mls/hr IV ASDIR [facility] Last Admin: 04/12/18 09:00 Dose: 75 mls/hr Levofloxacin (Levaquin 500 Mg Premixed Ivpb -) 500 mg in 100 mls @ 100 mls/hr IVPB DAILY [facility]; Protocol Latanoprost (Xalatan 0.005% Eye Drops -) 1 drop OD [facility] Last Admin: 04/12/18 22:53 Dose: 1 drop Levothyroxine Sodium (Synthroid -) 25 mcg PO DAILY@0700 [facility] Last Admin: 04/13/18 07:05 Dose: Not Given Losartan Potassium (Cozaar -) 50 mg PO DAILY [facility] Last Admin: 04/12/18 10:21 Dose: 50 mg - Objective Vital Signs: Vital Signs Temperature 98.8 F 04/13/18 06:00 Pulse Rate 77 04/13/18 06:00 Respiratory Rate 18 04/13/18 06:00 Blood Pressure 119/52 04/13/18 06:00 O2 Sat by Pulse Oximetry (%) 95 04/12/18 21:00 Cardiovascular: Yes: Regular Rate and Rhythm Respiratory: Yes: Rhonchi Gastrointestinal: Yes: Normal Bowel Sounds, Soft Labs: CBC, BMP 04/13/18 06:15 04/13/18 06:15 Problem List - Problems (1) Fever Assessment/Plan: -Cxr and Ct c/w RUL pna -BC -ID consult -US of Abdomen -ABX per ID -FLU swab -CT SCAN Code(s): R50.9 - FEVER, UNSPECIFIED (2) Weakness Assessment/Plan: -as above Code(s): R53.1 - WEAKNESS (3) HTN (hypertension) Assessment/Plan: -monitor on meds Code(s): I10 - ESSENTIAL (PRIMARY) HYPERTENSION (4) Abnormal EKG Assessment/Plan: -Obtain old ekg -CE -Cardio Code(s): R94.31 - ABNORMAL ELECTROCARDIOGRAM [ECG] [EKG] (5) Elevated troponin Assessment/Plan: -maybe demans ischemia -cardio on case Code(s): R74.8 - ABNORMAL LEVELS OF OTHER SERUM ENZYMES (6) 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 - LEGIONNAIRES' DISEASE (7) Pneumonia Assessment/Plan: _abx per id -d/w daughter _follow labs Code(s): J18.9 - PNEUMONIA, UNSPECIFIED ORGANISM
--- NOTE | 2018-04-13 08:42 | CONS ---
PULMONARY CONSULTATION DATE OF CONSULTATION: 04/12/2018 REFERRING PHYSICIAN: Jamie Steiner MD HISTORY OF PRESENT ILLNESS: The patient is an 81-year-old male with a past medical history of hypertension, hyperlipidemia, hypothyroidism, benign prostatic hypertrophy, a non-smoker, who was admitted to [facility] on April 10, 2018 with a complaint of a two-day history of weakness and fevers. For a couple days prior to his admission, the patient started to develop loss of appetite. On the Wednesday night prior to his admission, he felt very dizzy and apparently collapsed. He had had no chest pain or palpitations. He did complain of some cough, which was nonproductive. The patient was brought to the emergency room. On admission, he was evaluated by . He was placed on . On admission, he was also noted to have an elevated troponin level of 0.18. He was evaluated by Infectious Disease and placed on broad-spectrum antibiotics. He was also evaluated by Cardiology. They felt that the patient most likely had possible demand ischemia. The patient was continued on IV fluids secondary to a mild kidney injury. During the course of his hospitalization, he had some temperature spikes up to a maximum of 103.1. He underwent a CT scan of the chest today which revealed extensive right upper lobe consolidation. Of note, his Legionella urine antigen returned positive. PAST MEDICAL HISTORY: Again, this includes hypertension, hyperlipidemia, hypothyroidism and benign prostatic hypertrophy. SOCIAL HISTORY: He is a nonsmoker. He previously worked as a auto mechanic apprentice. He was born in [facility] and move to the [place] greater than 50 years ago. CURRENT MEDICATIONS: Tylenol, Cozaar, Zithromax, Ceftriaxone, Tenormin, IV fluid D5 normal, Norvasc, Lipitor, Proscar and Synthroid. REVIEW OF SYSTEMS: Positive for fever, chills and weakness. No chest pain. Positive for a nonproductive cough. No abdominal pain. No nausea or vomiting. PHYSICAL EXAMINATION: General: The patient is an elderly male. He was awake and alert, currently in no acute respiratory distress. Vital Signs: His T-max was 103.1; currently 98.4. His O2 saturation earlier was 93% on room air. Currently, his O2 saturation is 93% on 3 liters. Blood pressure is 122/68. Respirations 20. HEENT: Head is normocephalic, atraumatic. Neck: Supple. Heart: Regular. S1, S2. Chest: Crackles in the right lung field. Abdomen: Soft. Bowel sounds are positive. Extremities: No cyanosis or edema. LABORATORY: WBC: BUN is 17, creatinine 1.2, troponin 0.18, CRP 18.7, WBC 13.1, hemoglobin 12.5, hematocrit 38.2, platelet count of 127,000. There were 86 polys, 8 lymphs and [address] is as noted earlier. A urinalysis showed 2+ protein, 1+ heme. IMPRESSION: 1. Acute hypoxic respiratory failure. 2. Right upper lobe pneumonia. 3. Extensive right upper lobe consolidation consistent with Legionella pneumonia. 4. Acute kidney injury. 5. Positive troponins. 6. Hypertension. 7. Hyperlipidemia. 8. Hypothyroidism. 9. Benign prostatic hypertrophy. PLAN: 1. Broad-spectrum antibiotics. 2. Supplemental oxygen and inhaled bronchodilators. 3. Follow up chest x-ray. 4. Monitor renal function. 5. Trend troponins. 6. Monitor electrolytes. DELFINO HUNT M.D. [id number]
[2018-04-13] MEDS: ACETAMINOPHEN 325 MG TABLET (FP) PO PRN (08:58)
--- NOTE | 2018-04-13 09:43 | PN ---
Progress Note (short form) - Note Progress Note: afebrile this am repeat cxray with RUL infiltrate confirmed on ct scan Legionella urinary antigen positive Vital Signs Period Temp Pulse Resp BP Sys/Lira Pulse Ox Last 24 Hr 98.4 F-103.1 F 69-98 18-22 117-155/52-70 93-95 cor-rrr lungs decreased bs RUL abd soft,nt ext no edema CBC, BMP 04/13/18 06:15 04/13/18 06:15 Microbiology 04/12/18 08:51 Blood - Peripheral Venous Blood Culture - Preliminary NO GROWTH OBTAINED AFTER 24 HOURS, INCUBATION TO CONTINUE FOR 4 DAYS. 04/12/18 08:30 Blood - Peripheral Venous Blood Culture - Preliminary NO GROWTH OBTAINED AFTER 24 HOURS, INCUBATION TO CONTINUE FOR 4 DAYS. 04/11/18 08:05 Blood - Peripheral Venous Blood Culture - Preliminary NO GROWTH OBTAINED AFTER 48 HOURS, INCUBATION TO CONTINUE FOR 3 DAYS. 04/11/18 08:10 Blood - Peripheral Venous Blood Culture - Preliminary NO GROWTH OBTAINED AFTER 48 HOURS, INCUBATION TO CONTINUE FOR 3 DAYS. 04/11/18 20:00 Urine For Antigen Detection Legionella Antigen - Final 04/11/18 20:00 Urine For Antigen Detection Streptococcus pneumoniae Antigen (M - Final 04/11/18 13:56 Blood - Peripheral Venous Blood Culture - Preliminary NO GROWTH OBTAINED AFTER 24 HOURS, INCUBATION TO CONTINUE FOR 4 DAYS. 04/11/18 13:28 Blood - Peripheral Venous Blood Culture - Preliminary NO GROWTH OBTAINED AFTER 24 HOURS, INCUBATION TO CONTINUE FOR 4 DAYS. 04/12/18 08:00 Nasopharyngeal Swab Influenza Types A,B Antigen - Final 04/12/18 08:00 Nasopharyngeal Swab - Final 04/11/18 11:06 Blood - Peripheral Venous Blood Parasites Smear - Final 04/10/18 14:08 Urine - Urine Clean Catch Urine Culture - Final Contaminated: Please Repeat a/p legionella pneumonia-day #2 treatment iv levaquin d/w infection control nurse- she will report to [facility] d/w daughter at bedside d/w Dr MILLER legionella serology and sputum ordered +CPK- mild rhabdomyolysis
[2018-04-13] MEDS: LOSARTAN POTASSIUM 50 MG TABLET (FP) PO SCH (11:46)
[2018-04-13] MEDS: ATENOLOL 50 MG TABLET (FP) PO SCH (11:46)
[2018-04-13] MEDS: FINASTERIDE 5 MG TABLET (FP) PO SCH (11:46)
[2018-04-13] MEDS: D5-NS + 20 MEQ KCL - 20 MEQ/1,000 ML INFUS.BAG IV SCH (11:46)
[2018-04-13] MEDS: amLODIPine BESYLATE 5 MG TABLET (FP) PO SCH (11:46)
--- NOTE | 2018-04-13 12:03 | PN ---
Progress Note (short form) - Note Progress Note: Afebrile. Appears comfortable. No CP or SOB. (+) cough Intake & Output 04/10/18 04/11/18 04/12/18 04/13/18 23:59 23:59 23:59 23:59 Intake Total 530 1465 1050 Output Total 300 540 850 150 Balance -300 -10 615 900 Weight 135 lb 5 oz 135 lb Last Vital Signs Temp Pulse Resp BP Pulse Ox 99.7 F H 98 H 18 148/70 95 04/13/18 11:45 04/13/18 09:02 04/13/18 09:02 04/13/18 09:02 04/12/18 21:00 Active Medications Acetaminophen (Tylenol -) 650 mg PO Q6H PRN PRN Reason: FEVER Last Admin: 04/13/18 08:58 Dose: 650 mg Amlodipine Besylate (Norvasc -) 5 mg PO DAILY [facility] Last Admin: 04/13/18 11:46 Dose: 5 mg Atenolol (Tenormin -) 50 mg PO DAILY [facility] Last Admin: 04/13/18 11:46 Dose: 50 mg Atorvastatin Calcium (Lipitor -) 10 mg PO HS [facility] Last Admin: 04/12/18 21:55 Dose: 10 mg Finasteride (Proscar -) 5 mg PO DAILY [facility] Last Admin: 04/13/18 11:46 Dose: 5 mg Dextrose/Sodium Chloride (Dextrose 5%-Normal Saline+20 Meq Kcl -) 20 meq in 1, 000 mls @ 75 mls/hr IV ASDIR [facility] Last Admin: 04/13/18 11:46 Dose: 75 mls/hr Levofloxacin (Levaquin 500 Mg Premixed Ivpb -) 500 mg in 100 mls @ 100 mls/hr IVPB DAILY [facility]; Protocol Last Admin: 04/13/18 09:35 Dose: 100 mls/hr Latanoprost (Xalatan 0.005% Eye Drops -) 1 drop OD HS [facility] Last Admin: 04/12/18 22:53 Dose: 1 drop Levothyroxine Sodium (Synthroid -) 25 mcg PO DAILY@0700 [facility] Last Admin: 04/13/18 07:05 Dose: Not Given Losartan Potassium (Cozaar -) 50 mg PO DAILY [facility] Last Admin: 04/13/18 11:46 Dose: 50 mg Constitutional: Yes: No Distress, Calm Eyes: Yes: Conjunctiva Clear, EOM Intact HENT: Yes: Atraumatic, Normocephalic Neck: Yes: Supple, Trachea Midline Respiratory: Yes: scattered rhonchi, no wheeze y Gastrointestinal: Yes: Normal Bowel Sounds, Soft Renal/: Yes: WNL JVD: No Heart Sounds: Yes: S1, S2 Extremities: Yes: WNL Edema: No Laboratory Results - last 24 hr 04/13/18 04/13/18 04/13/18 06:15 06:15 06:30 WBC 13.0 H RBC 4.21 Hgb 12.3 Hct 37.4 MCV 88.7 MCH 29.2 MCHC 32.9 RDW 14.6 Plt Count 142 MPV 8.0 Absolute Neuts (auto) 11.7 H Neutrophils % 90.4 H Lymphocytes % 4.5 L D Monocytes % 4.9 Eosinophils % 0.0 Basophils % 0.2 Nucleated RBC % 0 Sodium 133 L Potassium 3.9 Chloride 99 Carbon Dioxide 26 Anion Gap 8 BUN 16 Creatinine 1.2 Creat Clearance w eGFR 57.27 Random Glucose 128 H Calcium 7.5 L Phosphorus 1.9 L Magnesium 1.9 Total Bilirubin 0.7 AST 55 H ALT 44 Alkaline Phosphatase 84 Creatine Kinase 918 H Creatine Kinase Index 0.4 CK-MB (CK-2) 3.96 H Total Protein 6.0 L Albumin 2.6 L Problem List - Problems (1) Pneumonia Code(s): J18.9 - PNEUMONIA, UNSPECIFIED ORGANISM (2) Dehydration Code(s): E86.0 - DEHYDRATION (3) Elevated troponin Code(s): R74.8 - ABNORMAL LEVELS OF OTHER SERUM ENZYMES (4) Fever Code(s): R50.9 - FEVER, UNSPECIFIED (5) HTN (hypertension) Code(s): I10 - ESSENTIAL (PRIMARY) HYPERTENSION (6) Lightheadedness Code(s): R42 - DIZZINESS AND GIDDINESS (7) 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
[2018-04-13] MEDS: methylPREDNISolone NA SUCC 40 MG/1 ML VIAL IVPUSH SCH (12:24)
--- NOTE | 2018-04-13 13:54 | PN ---
Progress Note (short form) - Note Progress Note: Renal follow up for DINORAH Pt seen and examined at the bedside no acute complaints continue to be febrile no sob, cp, abd pain, N/V/D Vital Signs Temperature 100.4 F H 04/13/18 13:38 Pulse Rate 74 04/13/18 13:38 Respiratory Rate 18 04/13/18 13:38 Blood Pressure 132/69 04/13/18 13:38 O2 Sat by Pulse Oximetry (%) 95 04/13/18 09:00 Intake & Output 04/10/18 04/11/18 04/12/18 04/13/18 23:59 23:59 23:59 23:59 Intake Total 530 1465 1050 Output Total 300 540 850 350 Balance -300 -10 615 700 Weight 61.377 kg 61.235 kg NAD RRR Dec BS soft NT/ND no LE edema CBC, BMP 04/13/18 06:15 04/13/18 06:15 Current Medications Acetaminophen (Tylenol -) 650 mg PO Q6H PRN PRN Reason: FEVER Last Admin: 04/13/18 08:58 Dose: 650 mg Amlodipine Besylate (Norvasc -) 5 mg PO DAILY [facility] Last Admin: 04/13/18 11:46 Dose: 5 mg Atenolol (Tenormin -) 50 mg PO DAILY [facility] Last Admin: 04/13/18 11:46 Dose: 50 mg Atorvastatin Calcium (Lipitor -) 10 mg PO HS [facility] Last Admin: 04/12/18 21:55 Dose: 10 mg Finasteride (Proscar -) 5 mg PO DAILY [facility] Last Admin: 04/13/18 11:46 Dose: 5 mg Dextrose/Sodium Chloride (Dextrose 5%-Normal Saline+20 Meq Kcl -) 20 meq in 1, 000 mls @ 75 mls/hr IV ASDIR [facility] Last Admin: 04/13/18 11:46 Dose: 75 mls/hr Levofloxacin (Levaquin 500 Mg Premixed Ivpb -) 500 mg in 100 mls @ 100 mls/hr IVPB DAILY [facility]; Protocol Last Admin: 04/13/18 09:35 Dose: 100 mls/hr Latanoprost (Xalatan 0.005% Eye Drops -) 1 drop OD HS [facility] Last Admin: 04/12/18 22:53 Dose: 1 drop Levothyroxine Sodium (Synthroid -) 25 mcg PO DAILY@0700 [facility] Last Admin: 04/13/18 07:05 Dose: Not Given Losartan Potassium (Cozaar -) 50 mg PO DAILY [facility] Last Admin: 04/13/18 11:46 Dose: 50 mg Methylprednisolone Sodium Succinate (Solu-Medrol -) 40 mg IVPUSH DAILY [facility] Stop: 04/17/18 10:01 Last Admin: 04/13/18 12:24 Dose: 40 mg 87 year old gentleman with hx of Hypertension, Hyperlipidemia, Hypothyrodism presented with weakness and fevers and admitted for suspected sepsis with Cr of 1.4 and Na of 135. #Fever secondary to PNA with + Legionella #DINORAH vs. CKD #Hyponatremia #Hypertension #Hyperlpidemia Renal function stable continue IVF at the present time as pt continues to be febrile Abx as per ID with coverage for legionella check urine eos supplemental O2 as needed Trend renal function and electrolytes Du Hernandez DO
[2018-04-13] MEDS ORDERED: BENZOCAINE/MENTH/CETYLPYRD CL 1 EACH LOZENGE MM PRN (14:48)
[2018-04-13] MEDS: guaiFENesin 200 MG/10 ML 10 ML UNIT-DOSE CUPS PO PRN ×2 (14:57→21:57)
[2018-04-13 19:07] LABS: URINE APPEARANCE CLEAR; URINE BILIRUBIN NEGATIVE (<2.0 mg/dL); URINE COLOR YELLOW; URINE GLUCOSE (UA) 1+ (NEGATIVE); URINE KETONE NEGATIVE (NEGATIVE); URINE LEUK ESTERASE NEGATIVE (NEGATIVE); URINE NITRITE NEGATIVE (NEGATIVE); URINE UROBILINOGEN NEGATIVE mg/dL (0.2-1.0)
[2018-04-13 19:08] LABS: URINE PROTEIN 2+ (NEGATIVE)
[2018-04-13 19:10] LABS: URINE MUCUS RARE
[2018-04-13] MEDS: ATORVASTATIN CA 10 MG TABLET (FP) PO SCH (21:42)
[2018-04-13] MEDS: LATANOPROST 0.005% OPHTH SOLN 2.5ML BOTTLE OD SCH (21:43)
[2018-04-14] MEDS: guaiFENesin 200 MG/10 ML 10 ML UNIT-DOSE CUPS PO PRN ×2 (06:32→22:13)
[2018-04-14] MEDS: LEVOTHYROXINE NA 25 MCG TABLET (FP) PO SCH (06:32)
[2018-04-14] MEDS: D5-NS + 20 MEQ KCL - 20 MEQ/1,000 ML INFUS.BAG IV SCH (06:32)
--- NOTE | 2018-04-14 07:42 | PN ---
Progress Note, Physician History of Present Illness: chills - Current Medication List Current Medications: Active Medications Acetaminophen (Tylenol -) 650 mg PO Q6H PRN PRN Reason: FEVER Last Admin: 04/13/18 08:58 Dose: 650 mg Amlodipine Besylate (Norvasc -) 5 mg PO DAILY [facility] Last Admin: 04/13/18 11:46 Dose: 5 mg Atenolol (Tenormin -) 50 mg PO DAILY [facility] Last Admin: 04/13/18 11:46 Dose: 50 mg Atorvastatin Calcium (Lipitor -) 10 mg PO HS [facility] Last Admin: 04/13/18 21:42 Dose: 10 mg Benzocaine/Menthol (Cepacol Lozenge -) 1 each MM Q6H PRN PRN Reason: SORE THROAT Finasteride (Proscar -) 5 mg PO DAILY [facility] Last Admin: 04/13/18 11:46 Dose: 5 mg Guaifenesin (Robitussin -) 10 ml PO Q6H PRN PRN Reason: COUGH Last Admin: 04/14/18 06:32 Dose: 10 ml Dextrose/Sodium Chloride (Dextrose 5%-Normal Saline+20 Meq Kcl -) 20 meq in 1, 000 mls @ 75 mls/hr IV ASDIR [facility] Last Admin: 04/14/18 06:32 Dose: 75 mls/hr Levofloxacin (Levaquin 500 Mg Premixed Ivpb -) 500 mg in 100 mls @ 100 mls/hr IVPB DAILY [facility]; Protocol Last Admin: 04/13/18 09:35 Dose: 100 mls/hr Latanoprost (Xalatan 0.005% Eye Drops -) 1 drop OD HS [facility] Last Admin: 04/13/18 21:43 Dose: 1 drop Levothyroxine Sodium (Synthroid -) 25 mcg PO DAILY@0700 [facility] Last Admin: 04/14/18 06:32 Dose: 25 mcg Losartan Potassium (Cozaar -) 50 mg PO DAILY [facility] Last Admin: 04/13/18 11:46 Dose: 50 mg Methylprednisolone Sodium Succinate (Solu-Medrol -) 40 mg IVPUSH DAILY [facility] Stop: 04/17/18 10:01 Last Admin: 04/13/18 12:24 Dose: 40 mg - Objective Vital Signs: Vital Signs Temperature 99.1 F 04/14/18 06:00 Pulse Rate 74 04/14/18 06:00 Respiratory Rate 18 04/14/18 06:00 Blood Pressure 139/67 04/14/18 06:00 O2 Sat by Pulse Oximetry (%) 94 L 04/13/18 21:00 Cardiovascular: Yes: S1, S2 Respiratory: Yes: Regular, CTA Bilaterally Gastrointestinal: Yes: Normal Bowel Sounds, Soft. No: Tenderness Labs: CBC, BMP 04/13/18 06:15 04/13/18 06:15 Problem List - Problems (1) Fever Assessment/Plan: -Cxr and Ct c/w RUL pna--legionelaa positive -BC -ID consult noted and dsicussed -US of Abdomen noted-possible acute cholecystitis -ABX per ID -FLU swab -CT SCAN noted Code(s): R50.9 - FEVER, UNSPECIFIED (2) Weakness Assessment/Plan: -Improved -as above Code(s): R53.1 - WEAKNESS (3) HTN (hypertension) Assessment/Plan: -monitor on meds Code(s): I10 - ESSENTIAL (PRIMARY) HYPERTENSION (4) Abnormal EKG Assessment/Plan: -Obtain old ekg -CE -Cardio Code(s): R94.31 - ABNORMAL ELECTROCARDIOGRAM [ECG] [EKG] (5) Elevated troponin Assessment/Plan: -maybe demans ischemia -cardio on case Code(s): R74.8 - ABNORMAL LEVELS OF OTHER SERUM ENZYMES (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
[2018-04-14 08:02] LABS: BASO % 0.1 % (0-2.0); HEMATOCRIT 34.4 % (35.4-49); HEMOGLOBIN 11.8 GM/dL (11.7-16.9); LYMPH % 2.9 % (8-40); MCH 29.9 pg (25.7-33.7); MCHC 34.2 g/dl (32.0-35.9); MEAN CELL VOLUME 87.3 fl (80-96); MEAN PLT VOLUME 7.5 fl (7.5-11.1); MONO % 3.4 % (3.8-10.2); NEUT % 93.6 % (42.8-82.8); PLATELET COUNT 143 K/MM3 (134-434); RBC 3.94 M/mm3 (4.00-5.60); RDW 14.6 % (11.9-15.9); WHITE BLOOD COUNT 10.4 K/mm3 (4.0-10.0)
[2018-04-14 08:56] LABS: CHLORIDE 102 mmol/L (98-107); POTASSIUM 4.6 mmol/L (3.5-5.1); SODIUM 133 mmol/L (136-145)
[2018-04-14 09:07] LABS: ALBUMIN 2.3 g/dl (3.4-5.0); ALK PHOS 90 U/L (45-117); ANION GAP 10 MMOL/L (8-16); BILIRUBIN,TOTAL 0.6 mg/dL (0.2-1); BLOOD UREA NITROGEN 18 mg/dL (7-18); CALCIUM 7.7 mg/dL (8.5-10.1); CO2 21 mmol/L (21-32); GLUCOSE,RANDOM 152 mg/dL (74-106); MAGNESIUM 1.9 mg/dL (1.8-2.4); SGOT/AST 59 U/L (15-37); SGPT/ALT 50 U/L (13-61); TOT PROT 5.4 g/dl (6.4-8.2)
[2018-04-14] MEDS ORDERED: ALBUTEROL SO4 2.5/IPRATROPIUM 0.5 INH SOL 3 ML VIAL.NEB. NEB PRN (11:06)
--- NOTE | 2018-04-14 11:06 | PN ---
Progress Note, Physician History of Present Illness: PULMONARY ALERT,FEELING BETTER,LESS DYSPNEIC,AFEBRILE - Current Medication List Current Medications: Active Medications Acetaminophen (Tylenol -) 650 mg PO Q6H PRN PRN Reason: FEVER Last Admin: 04/13/18 08:58 Dose: 650 mg Amlodipine Besylate (Norvasc -) 5 mg PO DAILY [facility] Last Admin: 04/13/18 11:46 Dose: 5 mg Atenolol (Tenormin -) 50 mg PO DAILY [facility] Last Admin: 04/13/18 11:46 Dose: 50 mg Atorvastatin Calcium (Lipitor -) 10 mg PO HS [facility] Last Admin: 04/13/18 21:42 Dose: 10 mg Benzocaine/Menthol (Cepacol Lozenge -) 1 each MM Q6H PRN PRN Reason: SORE THROAT Finasteride (Proscar -) 5 mg PO DAILY [facility] Last Admin: 04/13/18 11:46 Dose: 5 mg Guaifenesin (Robitussin -) 10 ml PO Q6H PRN PRN Reason: COUGH Last Admin: 04/14/18 06:32 Dose: 10 ml Dextrose/Sodium Chloride (Dextrose 5%-Normal Saline+20 Meq Kcl -) 20 meq in 1, 000 mls @ 75 mls/hr IV ASDIR [facility] Last Admin: 04/14/18 06:32 Dose: 75 mls/hr Levofloxacin (Levaquin 500 Mg Premixed Ivpb -) 500 mg in 100 mls @ 100 mls/hr IVPB DAILY [facility]; Protocol Last Admin: 04/13/18 09:35 Dose: 100 mls/hr Latanoprost (Xalatan 0.005% Eye Drops -) 1 drop OD HS [facility] Last Admin: 04/13/18 21:43 Dose: 1 drop Levothyroxine Sodium (Synthroid -) 25 mcg PO DAILY@0700 [facility] Last Admin: 04/14/18 06:32 Dose: 25 mcg Losartan Potassium (Cozaar -) 50 mg PO DAILY [facility] Last Admin: 04/13/18 11:46 Dose: 50 mg Methylprednisolone Sodium Succinate (Solu-Medrol -) 40 mg IVPUSH DAILY [facility] Stop: 04/17/18 10:01 Last Admin: 04/13/18 12:24 Dose: 40 mg - Objective Vital Signs: Vital Signs Temperature 99.1 F 04/14/18 06:00 Pulse Rate 74 04/14/18 06:00 Respiratory Rate 18 04/14/18 06:00 Blood Pressure 139/67 04/14/18 06:00 O2 Sat by Pulse Oximetry (%) 94 L 04/13/18 21:00 Constitutional: Yes: Well Nourished, Calm Eyes: Yes: WNL HENT: Yes: WNL Neck: Yes: WNL Cardiovascular: Yes: Regular Rate and Rhythm, S1, S2 Respiratory: Yes: Rales (CRACKLES ON R) Gastrointestinal: Yes: Normal Bowel Sounds, Soft Extremities: Yes: WNL Edema: No Labs: CBC, BMP 04/14/18 07:18 04/14/18 07:18 Problem List - Problems (1) Pneumonia Code(s): J18.9 - PNEUMONIA, UNSPECIFIED ORGANISM (2) Dehydration Code(s): E86.0 - DEHYDRATION (3) Elevated troponin Code(s): R74.8 - ABNORMAL LEVELS OF OTHER SERUM ENZYMES (4) Fever Code(s): R50.9 - FEVER, UNSPECIFIED (5) HTN (hypertension) Code(s): I10 - ESSENTIAL (PRIMARY) HYPERTENSION (6) Lightheadedness Code(s): R42 - DIZZINESS AND GIDDINESS (7) 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 Assessment/Plan IMP ACUTE HYPOXEMIC RESPIRATORY FAILURE IMPROVING RUL PNEUMONIA LEGIONELLA HTN +TROPONINS DINORAH PLAN ABX SUPPLEMENTAL O2 INHALED BRONCHODILATORS PRN MONITOR LYTES F/U CHEST X-RAYS DR HUNT Problem List - Problems (1) Pneumonia Code(s): J18.9 - PNEUMONIA, UNSPECIFIED ORGANISM (2) Dehydration Code(s): E86.0 - DEHYDRATION (3) Elevated troponin Code(s): R74.8 - ABNORMAL LEVELS OF OTHER SERUM ENZYMES (4) Fever Code(s): R50.9 - FEVER, UNSPECIFIED (5) HTN (hypertension) Code(s): I10 - ESSENTIAL (PRIMARY) HYPERTENSION (6) Lightheadedness Code(s): R42 - DIZZINESS AND GIDDINESS (7) 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
[2018-04-14] MEDS: FINASTERIDE 5 MG TABLET (FP) PO SCH (11:09)
[2018-04-14] MEDS: ATENOLOL 50 MG TABLET (FP) PO SCH (11:09)
[2018-04-14] MEDS: amLODIPine BESYLATE 5 MG TABLET (FP) PO SCH (11:09)
[2018-04-14] MEDS: LOSARTAN POTASSIUM 50 MG TABLET (FP) PO SCH (11:10)
[2018-04-14] MEDS: methylPREDNISolone NA SUCC 40 MG/1 ML VIAL IVPUSH SCH (11:10)
[2018-04-14 11:59] LABS: ACANTHOCYTES 0; ANISOCYTOSIS 0; HELMET CELLS 0; HOWELL-JOLLY BODIES 0; MACROCYTOSIS 0; OVALOCYTE 0; PLATELET ESTIMATE DECREASED; ROULEAU 0; SICKELED CELLS 0; TARGET CELLS 0; TEAR DROP CELLS 0; TOXIC GRANULATION 0
--- NOTE | 2018-04-14 13:25 | CONSULT ---
- Consultation REQUESTING PROVIDER: Jose M Che UNIT CONTROLLER CONSULT REQUEST: We have been asked to surgically evaluate this patient for possible symptomatic biliary tract disease. PCP:Jamie Steiner HISTORY OF PRESENT ILLNESS: Patient presented w/ fever and malaise and poor po intake for ~ 1.5 months prior to admission; patient seen and evaluated; chart reviewed; had long d/w the patients daughter; he is currently being txed for Legionnaires; he has a poor appetite but denies n/v/post prandial RUQ pain as best as can be determined; he had a w/u w/ a CT scan of the a/p and an US; results are reviewed. PMHx: hypertension/hyperlipidemia/BPH PSHx: none Home Medications Medication Instructions Recorded Atenolol [Tenormin -] 50 mg PO DAILY 07/10/14 Atorvastatin Ca [Lipitor -] 20 mg PO HS 07/10/14 Cholecalciferol (Vitamin D3) 14,000 unit PO DAILY 07/10/14 [[facility] Replesta] Finasteride [Proscar -] 5 mg PO HS 07/10/14 Levothyroxine [Synthroid -] 25 mcg PO DAILY 07/10/14 Silodosin [Rapaflo] 8 mg PO HS 07/10/14 Amlodipine Bes/Olmesartan Med 1 each PO DAILY 04/10/18 [Amlodipine-Olmesartan 5-40 mg] Latanoprost 0.005% Eye Drops 1 drop OD HS 04/12/18 [Xalatan 0.005% Eye Drops -] Allergies Allergy/AdvReac Type Severity Reaction Status Date / Time No Known Drug Allergies Allergy Verified 04/10/18 13:24 PHYSICAL EXAM: GENERAL: Awake, alert, and fully oriented, in no acute distress. HEAD: Normal with no signs of trauma. EYES: sclera anicteric, conjunctiva clear. NECK: Normal ROM, supple without lymphadenopathy, JVD, or masses. ABDOMEN: Soft, nontender, not distended, normoactive bowel sounds, no guarding, no rebound, no masses. Diastsasis rectii is present. No organomegaly. Reducible RIH; no scars. MUSCULOSKELETAL: Normal ROM at all joints. No bony deformities or tenderness. No CVA tenderness. UPPER EXTREMITIES: 2+ pulses, warm, well-perfused. No cyanosis. Cap refill <2 seconds. No peripheral edema. LOWER EXTREMITIES: 2+ pulses, warm, well-perfused. No calf tenderness. No peripheral edema. NEUROLOGICAL: Normal speech, gait not observed. PSYCH: Cooperative. Good eye contact. Appropriate mood and affect. SKIN: Warm, dry, normal turgor, no rashes or lesions noted. Vital Signs Temperature 99.1 F 04/14/18 06:00 Pulse Rate 74 04/14/18 06:00 Respiratory Rate 18 04/14/18 06:00 Blood Pressure 139/67 04/14/18 06:00 O2 Sat by Pulse Oximetry (%) 94 L 04/13/18 21:00 Lab Results WBC 10.4 K/mm3 (4.0-10.0) H 04/14/18 07:18 RBC 3.94 M/mm3 (4.00-5.60) L 04/14/18 07:18 Hgb 11.8 GM/dL (11.7-16.9) 04/14/18 07:18 Hct 34.4 % (35.4-49) L 04/14/18 07:18 MCV 87.3 fl (80-96) 04/14/18 07:18 MCHC 34.2 g/dl (32.0-35.9) 04/14/18 07:18 RDW 14.6 % (11.9-15.9) 04/14/18 07:18 Plt Count 143 K/MM3 (134-434) 04/14/18 07:18 Sodium 133 mmol/L (136-145) L 04/14/18 07:18 Potassium 4.6 mmol/L (3.5-5.1) 04/14/18 07:18 Chloride 102 mmol/L (98-107) 04/14/18 07:18 Carbon Dioxide 21 mmol/L (21-32) 04/14/18 07:18 Anion Gap 10 MMOL/L (8-16) 04/14/18 07:18 BUN 18 mg/dL (7-18) 04/14/18 07:18 Creatinine 1.0 mg/dL (0.55-1.3) 04/14/18 07:18 Random Glucose 152 mg/dL (74-106) H 04/14/18 07:18 Calcium 7.7 mg/dL (8.5-10.1) L 04/14/18 07:18 w/u to date reviewed. IMP: No evidence of symptomatic biliary tract disease. PLAN: PRN f/u. Nghia Phillips MD FACS
--- NOTE | 2018-04-14 14:16 | PN ---
Progress Note (short form) - Note Progress Note: Renal follow up for DINORAH Pt seen and examined at the bedside last fever was last night making urine Vital Signs Temperature 99.1 F 04/14/18 06:00 Pulse Rate 74 04/14/18 06:00 Respiratory Rate 18 04/14/18 06:00 Blood Pressure 139/67 04/14/18 06:00 O2 Sat by Pulse Oximetry (%) 94 L 04/13/18 21:00 Intake & Output 04/11/18 04/12/18 04/13/18 04/14/18 23:59 23:59 23:59 23:59 Intake Total 530 1465 1605 1140 Output Total 540 850 850 450 Balance -10 615 755 690 Weight 61.235 kg NAD RRR Dec BS soft NT/ND no LE edema CBC, BMP 04/14/18 07:18 04/14/18 07:18 Current Medications Acetaminophen (Tylenol -) 650 mg PO Q6H PRN PRN Reason: FEVER Last Admin: 04/13/18 08:58 Dose: 650 mg Albuterol/Ipratropium (Duoneb -) 1 amp NEB Q4H PRN PRN Reason: SHORTNESS OF BREATH Amlodipine Besylate (Norvasc -) 5 mg PO DAILY [facility] Last Admin: 04/14/18 11:09 Dose: 5 mg Atenolol (Tenormin -) 50 mg PO DAILY [facility] Last Admin: 04/14/18 11:09 Dose: 50 mg Atorvastatin Calcium (Lipitor -) 10 mg PO HS [facility] Last Admin: 04/13/18 21:42 Dose: 10 mg Benzocaine/Menthol (Cepacol Lozenge -) 1 each MM Q6H PRN PRN Reason: SORE THROAT Finasteride (Proscar -) 5 mg PO DAILY [facility] Last Admin: 04/14/18 11:09 Dose: 5 mg Guaifenesin (Robitussin -) 10 ml PO Q6H PRN PRN Reason: COUGH Last Admin: 04/14/18 06:32 Dose: 10 ml Dextrose/Sodium Chloride (Dextrose 5%-Normal Saline+20 Meq Kcl -) 20 meq in 1, 000 mls @ 75 mls/hr IV ASDIR [facility] Last Admin: 04/14/18 06:32 Dose: 75 mls/hr Levofloxacin (Levaquin 500 Mg Premixed Ivpb -) 500 mg in 100 mls @ 100 mls/hr IVPB DAILY [facility]; Protocol Last Admin: 04/14/18 11:09 Dose: 100 mls/hr Latanoprost (Xalatan 0.005% Eye Drops -) 1 drop OD HS [facility] Last Admin: 04/13/18 21:43 Dose: 1 drop Levothyroxine Sodium (Synthroid -) 25 mcg PO DAILY@0700 [facility] Last Admin: 04/14/18 06:32 Dose: 25 mcg Losartan Potassium (Cozaar -) 50 mg PO DAILY [facility] Last Admin: 04/14/18 11:10 Dose: 50 mg Methylprednisolone Sodium Succinate (Solu-Medrol -) 40 mg IVPUSH DAILY [facility] Stop: 04/17/18 10:01 Last Admin: 04/14/18 11:10 Dose: 40 mg 87 year old gentleman with hx of Hypertension, Hyperlipidemia, Hypothyrodism presented with weakness and fevers and admitted for suspected sepsis with Cr of 1.4 and Na of 135. #Fever secondary to PNA with + Legionella #Rhabdomyolysis #DINORAH vs. CKD #Hyponatremia #Hypertension #Hyperlpidemia Renal function improved and stable CK's down trending continue moderate IVF hydration Trend renal function and electrolytes Du Hernandez DO
--- NOTE | 2018-04-14 15:21 | PN ---
Progress Note (short form) - Note Progress Note: afebrile this am repeat cxray with RUL infiltrate confirmed on ct scan Legionella urinary antigen positive afebrile no complaints eating Vital Signs Period Temp Pulse Resp BP Sys/Lira Pulse Ox Last 24 Hr 97.5 F-99.7 F 67-81 18-18 129-144/65-72 94 cor-rrr lungs decreased bs at bases abd soft,nt ext no edema CBC, BMP 04/14/18 07:18 04/14/18 07:18 Microbiology 04/11/18 13:56 Blood - Peripheral Venous Blood Culture - Preliminary NO GROWTH OBTAINED AFTER 72 HOURS, INCUBATION TO CONTINUE FOR 2 DAYS. 04/11/18 13:28 Blood - Peripheral Venous Blood Culture - Preliminary NO GROWTH OBTAINED AFTER 72 HOURS, INCUBATION TO CONTINUE FOR 2 DAYS. 04/12/18 08:51 Blood - Peripheral Venous Blood Culture - Preliminary NO GROWTH OBTAINED AFTER 48 HOURS, INCUBATION TO CONTINUE FOR 3 DAYS. 04/12/18 08:30 Blood - Peripheral Venous Blood Culture - Preliminary NO GROWTH OBTAINED AFTER 48 HOURS, INCUBATION TO CONTINUE FOR 3 DAYS. 04/11/18 08:05 Blood - Peripheral Venous Blood Culture - Preliminary NO GROWTH OBTAINED AFTER 72 HOURS, INCUBATION TO CONTINUE FOR 2 DAYS. 04/11/18 08:10 Blood - Peripheral Venous Blood Culture - Preliminary NO GROWTH OBTAINED AFTER 72 HOURS, INCUBATION TO CONTINUE FOR 2 DAYS. 04/13/18 06:15 Serum Legionella Serology - Preliminary 04/13/18 11:20 Transtracheal Aspiration Legionella Culture - Preliminary 04/13/18 09:00 Urine For Antigen Detection Legionella Antigen - Final 04/13/18 09:00 Urine For Antigen Detection Streptococcus pneumoniae Antigen (M - Final 04/11/18 20:00 Urine For Antigen Detection Legionella Antigen - Final 04/11/18 20:00 Urine For Antigen Detection Streptococcus pneumoniae Antigen (M - Final 04/12/18 08:00 Nasopharyngeal Swab Influenza Types A,B Antigen - Final 04/12/18 08:00 Nasopharyngeal Swab - Final 04/11/18 11:06 Blood - Peripheral Venous Blood Parasites Smear - Final 04/10/18 14:08 Urine - Urine Clean Catch Urine Culture - Final Contaminated: Please Repeat Current Medications Acetaminophen (Tylenol -) 650 mg PO Q6H PRN PRN Reason: FEVER Last Admin: 04/13/18 08:58 Dose: 650 mg Albuterol/Ipratropium (Duoneb -) 1 amp NEB Q4H PRN PRN Reason: SHORTNESS OF BREATH Amlodipine Besylate (Norvasc -) 5 mg PO DAILY [facility] Last Admin: 04/14/18 11:09 Dose: 5 mg Atenolol (Tenormin -) 50 mg PO DAILY [facility] Last Admin: 04/14/18 11:09 Dose: 50 mg Atorvastatin Calcium (Lipitor -) 10 mg PO HS [facility] Last Admin: 04/13/18 21:42 Dose: 10 mg Benzocaine/Menthol (Cepacol Lozenge -) 1 each MM Q6H PRN PRN Reason: SORE THROAT Finasteride (Proscar -) 5 mg PO DAILY [facility] Last Admin: 04/14/18 11:09 Dose: 5 mg Guaifenesin (Robitussin -) 10 ml PO Q6H PRN PRN Reason: COUGH Last Admin: 04/14/18 06:32 Dose: 10 ml Dextrose/Sodium Chloride (Dextrose 5%-Normal Saline+20 Meq Kcl -) 20 meq in 1, 000 mls @ 75 mls/hr IV ASDIR [facility] Last Admin: 04/14/18 06:32 Dose: 75 mls/hr Levofloxacin (Levaquin 500 Mg Premixed Ivpb -) 500 mg in 100 mls @ 100 mls/hr IVPB DAILY [facility]; Protocol Last Admin: 04/14/18 11:09 Dose: 100 mls/hr Latanoprost (Xalatan 0.005% Eye Drops -) 1 drop OD HS [facility] Last Admin: 04/13/18 21:43 Dose: 1 drop Levothyroxine Sodium (Synthroid -) 25 mcg PO DAILY@0700 [facility] Last Admin: 04/14/18 06:32 Dose: 25 mcg Losartan Potassium (Cozaar -) 50 mg PO DAILY [facility] Last Admin: 04/14/18 11:10 Dose: 50 mg Methylprednisolone Sodium Succinate (Solu-Medrol -) 40 mg IVPUSH DAILY [facility] Stop: 04/17/18 10:01 Last Admin: 04/14/18 11:10 Dose: 40 mg a/p legionella pneumonia-day #3 treatment iv levaquin legionella serology and sputum ordered +CPK- mild rhabdomyolysis continue antiibotics Problem List - Problems (1) Fever Code(s): R50.9 - FEVER, UNSPECIFIED (2) Dehydration Code(s): E86.0 - DEHYDRATION (3) Hyponatremia Code(s): E87.1 - HYPO-OSMOLALITY AND HYPONATREMIA
[2018-04-14] MEDS: LATANOPROST 0.005% OPHTH SOLN 2.5ML BOTTLE OD SCH (22:12)
[2018-04-14] MEDS: ATORVASTATIN CA 10 MG TABLET (FP) PO SCH (22:12)
[2018-04-15 06:50] LABS: HEMATOCRIT 35.5 % (35.4-49); LYMPH % 4.4 % (8-40); MCH 29.6 pg (25.7-33.7); MCHC 33.9 g/dl (32.0-35.9); MEAN CELL VOLUME 87.4 fl (80-96); MEAN PLT VOLUME 7.7 fl (7.5-11.1); MONO % 6.4 % (3.8-10.2); NEUT % 89.2 % (42.8-82.8); PLATELET COUNT 186 K/MM3 (134-434); RBC 4.06 M/mm3 (4.00-5.60); RDW 14.6 % (11.9-15.9); WHITE BLOOD COUNT 10.7 K/mm3 (4.0-10.0)
[2018-04-15] MEDS: D5-NS + 20 MEQ KCL - 20 MEQ/1,000 ML INFUS.BAG IV SCH (06:55)
[2018-04-15] MEDS: LEVOTHYROXINE NA 25 MCG TABLET (FP) PO SCH (06:55)
[2018-04-15] MEDS: guaiFENesin 200 MG/10 ML 10 ML UNIT-DOSE CUPS PO PRN ×2 (07:02→21:15)
[2018-04-15 07:15] LABS: ALBUMIN 2.4 g/dl (3.4-5.0); ALK PHOS 111 U/L (45-117); ANION GAP 10 MMOL/L (8-16); BILIRUBIN,TOTAL 0.4 mg/dL (0.2-1); BLOOD UREA NITROGEN 23 mg/dL (7-18); CALCIUM 8.1 mg/dL (8.5-10.1); CHLORIDE 106 mmol/L (98-107); CO2 21 mmol/L (21-32); GLUCOSE,RANDOM 172 mg/dL (74-106); POTASSIUM 4.2 mmol/L (3.5-5.1); SGOT/AST 97 U/L (15-37); SGPT/ALT 92 U/L (13-61); SODIUM 137 mmol/L (136-145); TOT PROT 5.5 g/dl (6.4-8.2)
[2018-04-15] MEDS ORDERED: PT OWN MED DRAWER 7, Y5N ONE (09:31)
[2018-04-15] MEDS: LOSARTAN POTASSIUM 50 MG TABLET (FP) PO SCH (10:19)
[2018-04-15] MEDS: amLODIPine BESYLATE 5 MG TABLET (FP) PO SCH (10:19)
[2018-04-15] MEDS: ATENOLOL 50 MG TABLET (FP) PO SCH (10:19)
[2018-04-15] MEDS: FINASTERIDE 5 MG TABLET (FP) PO SCH (10:19)
[2018-04-15] MEDS: methylPREDNISolone NA SUCC 40 MG/1 ML VIAL IVPUSH SCH (10:19)
--- NOTE | 2018-04-15 10:21 | PN ---
Progress Note, Physician Chief Complaint: AWAKE ALERT FEELING BETTER EVENTS AND NOTES REVIEWED - Current Medication List Current Medications: Active Medications Acetaminophen (Tylenol -) 650 mg PO Q6H PRN PRN Reason: FEVER Last Admin: 04/13/18 08:58 Dose: 650 mg Albuterol/Ipratropium (Duoneb -) 1 amp NEB Q4H PRN PRN Reason: SHORTNESS OF BREATH Amlodipine Besylate (Norvasc -) 5 mg PO DAILY [facility] Last Admin: 04/14/18 11:09 Dose: 5 mg Atenolol (Tenormin -) 50 mg PO DAILY [facility] Last Admin: 04/14/18 11:09 Dose: 50 mg Atorvastatin Calcium (Lipitor -) 10 mg PO HS [facility] Last Admin: 04/14/18 22:12 Dose: 10 mg Benzocaine/Menthol (Cepacol Lozenge -) 1 each MM Q6H PRN PRN Reason: SORE THROAT Finasteride (Proscar -) 5 mg PO DAILY [facility] Last Admin: 04/14/18 11:09 Dose: 5 mg Guaifenesin (Robitussin -) 10 ml PO Q6H PRN PRN Reason: COUGH Last Admin: 04/15/18 07:02 Dose: 10 ml Dextrose/Sodium Chloride (Dextrose 5%-Normal Saline+20 Meq Kcl -) 20 meq in 1, 000 mls @ 75 mls/hr IV ASDIR [facility] Last Admin: 04/15/18 06:55 Dose: 75 mls/hr Levofloxacin (Levaquin 500 Mg Premixed Ivpb -) 500 mg in 100 mls @ 100 mls/hr IVPB DAILY [facility]; Protocol Last Admin: 04/14/18 11:09 Dose: 100 mls/hr Latanoprost (Xalatan 0.005% Eye Drops -) 1 drop OD HS [facility] Last Admin: 04/14/18 22:12 Dose: 1 drop Levothyroxine Sodium (Synthroid -) 25 mcg PO DAILY@0700 [facility] Last Admin: 04/15/18 06:55 Dose: 25 mcg Losartan Potassium (Cozaar -) 50 mg PO DAILY [facility] Last Admin: 04/14/18 11:10 Dose: 50 mg Methylprednisolone Sodium Succinate (Solu-Medrol -) 40 mg IVPUSH DAILY [facility] Stop: 04/17/18 10:01 Last Admin: 04/14/18 11:10 Dose: 40 mg - Objective Vital Signs: Vital Signs Temperature 98.4 F 04/15/18 05:00 Pulse Rate 63 04/15/18 05:00 Respiratory Rate 17 04/15/18 05:00 Blood Pressure 152/87 04/15/18 05:00 O2 Sat by Pulse Oximetry (%) 94 L 04/14/18 21:00 Constitutional: Yes: Mild Distress Eyes: Yes: WNL HENT: Yes: WNL Neck: Yes: WNL Cardiovascular: Yes: Pulse Irregular Respiratory: Yes: Cough, On Nasal O2, Wheezes Gastrointestinal: Yes: WNL Genitourinary: Yes: WNL Musculoskeletal: Yes: WNL Extremities: Yes: WNL Edema: No Peripheral Pulses WNL: Yes Integumentary: Yes: WNL Wound/Incision: Yes: Clean/Dry Neurological: Yes: WNL ...Motor Strength: WNL Psychiatric: Yes: WNL Labs: CBC, BMP 04/15/18 05:30 04/15/18 05:30 Problem List - Problems (1) Abnormal EKG Code(s): R94.31 - ABNORMAL ELECTROCARDIOGRAM [ECG] [EKG] (2) Acute hypoxemic respiratory failure Code(s): J96.01 - ACUTE RESPIRATORY FAILURE WITH HYPOXIA (3) Acute kidney injury Code(s): N17.9 - ACUTE KIDNEY FAILURE, UNSPECIFIED (4) Dehydration Code(s): E86.0 - DEHYDRATION (5) Elevated troponin Code(s): R74.8 - ABNORMAL LEVELS OF OTHER SERUM ENZYMES (6) Fever Code(s): R50.9 - FEVER, UNSPECIFIED (7) HTN (hypertension) Code(s): I10 - ESSENTIAL (PRIMARY) HYPERTENSION (8) Hyponatremia Code(s): E87.1 - HYPO-OSMOLALITY AND HYPONATREMIA (9) 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 - LEGIONNAIRES' DISEASE (10) Weakness Code(s): R53.1 - WEAKNESS Assessment/Plan IV ABX LEVAQUIN CONTINUE PER ID IV STEROIDS CAN TAPER DOWN LEFT ELEVATION LIKELY FROM STEROIDS WILL MONITOR LEVEL 02 SUPPORT NEBS OOB TO CHAIR DVT PROPHYLAXIS
[2018-04-15] MEDS ORDERED: methylPREDNISolone NA SUCC 40 MG/1 ML VIAL IVPUSH SCH (10:53)
--- NOTE | 2018-04-15 10:53 | PN ---
Progress Note, Physician History of Present Illness: pulmonary alert,feeling better,less cough,-sob - Current Medication List Current Medications: Active Medications Acetaminophen (Tylenol -) 650 mg PO Q6H PRN PRN Reason: FEVER Last Admin: 04/13/18 08:58 Dose: 650 mg Albuterol/Ipratropium (Duoneb -) 1 amp NEB Q4H PRN PRN Reason: SHORTNESS OF BREATH Amlodipine Besylate (Norvasc -) 5 mg PO DAILY [facility] Last Admin: 04/15/18 10:19 Dose: 5 mg Atenolol (Tenormin -) 50 mg PO DAILY [facility] Last Admin: 04/15/18 10:19 Dose: 50 mg Atorvastatin Calcium (Lipitor -) 10 mg PO HS [facility] Last Admin: 04/14/18 22:12 Dose: 10 mg Benzocaine/Menthol (Cepacol Lozenge -) 1 each MM Q6H PRN PRN Reason: SORE THROAT Finasteride (Proscar -) 5 mg PO DAILY [facility] Last Admin: 04/15/18 10:19 Dose: 5 mg Guaifenesin (Robitussin -) 10 ml PO Q6H PRN PRN Reason: COUGH Last Admin: 04/15/18 07:02 Dose: 10 ml Levofloxacin (Levaquin 500 Mg Premixed Ivpb -) 500 mg in 100 mls @ 100 mls/hr IVPB DAILY [facility]; Protocol Last Admin: 04/15/18 10:19 Dose: 100 mls/hr Latanoprost (Xalatan 0.005% Eye Drops -) 1 drop OD HS [facility] Last Admin: 04/14/18 22:12 Dose: 1 drop Levothyroxine Sodium (Synthroid -) 25 mcg PO DAILY@0700 [facility] Last Admin: 04/15/18 06:55 Dose: 25 mcg Losartan Potassium (Cozaar -) 50 mg PO DAILY [facility] Last Admin: 04/15/18 10:19 Dose: 50 mg Methylprednisolone Sodium Succinate (Solu-Medrol -) 40 mg IVPUSH DAILY [facility] Stop: 04/17/18 10:01 Last Admin: 04/15/18 10:19 Dose: 40 mg - Objective Vital Signs: Vital Signs Temperature 98.4 F 04/15/18 05:00 Pulse Rate 63 04/15/18 05:00 Respiratory Rate 17 04/15/18 05:00 Blood Pressure 152/87 04/15/18 05:00 O2 Sat by Pulse Oximetry (%) 94 L 04/14/18 21:00 Constitutional: Yes: Well Nourished, Calm Eyes: Yes: WNL HENT: Yes: WNL Neck: Yes: WNL Cardiovascular: Yes: Regular Rate and Rhythm, S1, S2 Respiratory: Yes: Rales (crackles rul) Gastrointestinal: Yes: Normal Bowel Sounds, Soft Extremities: Yes: WNL Edema: No Labs: CBC, BMP 04/15/18 05:30 04/15/18 05:30 - ....Imaging Chest X-ray: Image Reviewed Problem List - Problems (1) Pneumonia Code(s): J18.9 - PNEUMONIA, UNSPECIFIED ORGANISM (2) Dehydration Code(s): E86.0 - DEHYDRATION (3) Elevated troponin Code(s): R74.8 - ABNORMAL LEVELS OF OTHER SERUM ENZYMES (4) Fever Code(s): R50.9 - FEVER, UNSPECIFIED (5) HTN (hypertension) Code(s): I10 - ESSENTIAL (PRIMARY) HYPERTENSION (6) Lightheadedness Code(s): R42 - DIZZINESS AND GIDDINESS (7) 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 Assessment/Plan IMP ACUTE HYPOXEMIC RESPIRATORY FAILURE IMPROVING RUL PNEUMONIA LEGIONELLA CLINICALLY IMPROVING HTN +TROPONINS DINORAH PLAN ABX SUPPLEMENTAL O2 INHALED BRONCHODILATORS PRN MONITOR LYTES F/U CHEST X-RAYS STEROID TAPER DR HUNT Problem List - Problems (1) Pneumonia Code(s): J18.9 - PNEUMONIA, UNSPECIFIED ORGANISM (2) Dehydration Code(s): E86.0 - DEHYDRATION (3) Elevated troponin Code(s): R74.8 - ABNORMAL LEVELS OF OTHER SERUM ENZYMES (4) Fever Code(s): R50.9 - FEVER, UNSPECIFIED (5) HTN (hypertension) Code(s): I10 - ESSENTIAL (PRIMARY) HYPERTENSION (6) Lightheadedness Code(s): R42 - DIZZINESS AND GIDDINESS (7) 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
--- NOTE | 2018-04-15 11:07 | PN ---
Progress Note (short form) - Note Progress Note: Renal follow up for DINORAH Pt seen and examined at the bedside no acute complaints making urine sob improved no fevers Vital Signs Temperature 98.4 F 04/15/18 05:00 Pulse Rate 63 04/15/18 05:00 Respiratory Rate 17 04/15/18 05:00 Blood Pressure 152/87 04/15/18 05:00 O2 Sat by Pulse Oximetry (%) 94 L 04/14/18 21:00 Intake & Output 04/12/18 04/13/18 04/14/18 04/15/18 23:59 23:59 23:59 23:59 Intake Total 1465 1605 1500 1140 Output Total 850 576 533 7999 Balance 615 755 650 -460 Weight 61.235 kg NAD RRR Dec BS soft NT/ND no LE edema CBC, BMP 04/15/18 05:30 04/15/18 05:30 Current Medications Acetaminophen (Tylenol -) 650 mg PO Q6H PRN PRN Reason: FEVER Last Admin: 04/13/18 08:58 Dose: 650 mg Albuterol/Ipratropium (Duoneb -) 1 amp NEB Q4H PRN PRN Reason: SHORTNESS OF BREATH Amlodipine Besylate (Norvasc -) 5 mg PO DAILY [facility] Last Admin: 04/15/18 10:19 Dose: 5 mg Atenolol (Tenormin -) 50 mg PO DAILY [facility] Last Admin: 04/15/18 10:19 Dose: 50 mg Atorvastatin Calcium (Lipitor -) 10 mg PO HS [facility] Last Admin: 04/14/18 22:12 Dose: 10 mg Benzocaine/Menthol (Cepacol Lozenge -) 1 each MM Q6H PRN PRN Reason: SORE THROAT Finasteride (Proscar -) 5 mg PO DAILY [facility] Last Admin: 04/15/18 10:19 Dose: 5 mg Guaifenesin (Robitussin -) 10 ml PO Q6H PRN PRN Reason: COUGH Last Admin: 04/15/18 07:02 Dose: 10 ml Levofloxacin (Levaquin 500 Mg Premixed Ivpb -) 500 mg in 100 mls @ 100 mls/hr IVPB DAILY [facility]; Protocol Last Admin: 04/15/18 10:19 Dose: 100 mls/hr Latanoprost (Xalatan 0.005% Eye Drops -) 1 drop OD HS [facility] Last Admin: 04/14/18 22:12 Dose: 1 drop Levothyroxine Sodium (Synthroid -) 25 mcg PO DAILY@0700 [facility] Last Admin: 04/15/18 06:55 Dose: 25 mcg Losartan Potassium (Cozaar -) 50 mg PO DAILY [facility] Last Admin: 04/15/18 10:19 Dose: 50 mg Methylprednisolone Sodium Succinate (Solu-Medrol -) 20 mg IVPUSH DAILY [facility] Stop: 04/17/18 10:01 87 year old gentleman with hx of Hypertension, Hyperlipidemia, Hypothyrodism presented with weakness and fevers and admitted for suspected sepsis with Cr of 1.4 and Na of 135. #Fever secondary to PNA with + Legionella #Rhabdomyolysis #DINORAH vs. CKD #Hyponatremia #Hypertension #Hyperlpidemia Renal function improved and stable CKs improving continue Tx for legionella as per ID would continue to trend renal function and electrolytes while inpatient oral intake as tolerated continue losartan for hypertension BUN high likely due to steroids and not a reflection of volume depletion will sign off case at this time, please call if any questions or concerns Du Hernandez DO
--- NOTE | 2018-04-15 14:45 | PN ---
Progress Note (short form) - Note Progress Note: afebrile this am repeat cxray with RUL infiltrate improved Vital Signs Period Temp Pulse Resp BP Sys/Lira Pulse Ox Last 24 Hr 97.6 F-99 F 63-70 17-18 138-152/60-87 94-95 cor-rrr lungs clear abd soft,nt ext no edema CBC, BMP 04/15/18 05:30 04/15/18 05:30 Microbiology 04/11/18 13:56 Blood - Peripheral Venous Blood Culture - Preliminary NO GROWTH OBTAINED AFTER 96 HOURS, INCUBATION TO CONTINUE FOR 1 DAYS. 04/11/18 13:28 Blood - Peripheral Venous Blood Culture - Preliminary NO GROWTH OBTAINED AFTER 96 HOURS, INCUBATION TO CONTINUE FOR 1 DAYS. 04/13/18 06:15 Serum Legionella Serology - Final 04/14/18 11:00 Urine - Urine Clean Catch Urine Culture - Final NO GROWTH OBTAINED 04/12/18 08:51 Blood - Peripheral Venous Blood Culture - Preliminary NO GROWTH OBTAINED AFTER 72 HOURS, INCUBATION TO CONTINUE FOR 2 DAYS. 04/12/18 08:30 Blood - Peripheral Venous Blood Culture - Preliminary NO GROWTH OBTAINED AFTER 72 HOURS, INCUBATION TO CONTINUE FOR 2 DAYS. 04/11/18 08:05 Blood - Peripheral Venous Blood Culture - Preliminary NO GROWTH OBTAINED AFTER 96 HOURS, INCUBATION TO CONTINUE FOR 1 DAYS. 04/11/18 08:10 Blood - Peripheral Venous Blood Culture - Preliminary NO GROWTH OBTAINED AFTER 96 HOURS, INCUBATION TO CONTINUE FOR 1 DAYS. 04/13/18 11:20 Transtracheal Aspiration Legionella Culture - Preliminary 04/13/18 09:00 Urine For Antigen Detection Legionella Antigen - Final 04/13/18 09:00 Urine For Antigen Detection Streptococcus pneumoniae Antigen (M - Final 04/11/18 20:00 Urine For Antigen Detection Legionella Antigen - Final 04/11/18 20:00 Urine For Antigen Detection Streptococcus pneumoniae Antigen (M - Final 04/12/18 08:00 Nasopharyngeal Swab Influenza Types A,B Antigen - Final 04/12/18 08:00 Nasopharyngeal Swab - Final 04/11/18 11:06 Blood - Peripheral Venous Blood Parasites Smear - Final 04/10/18 14:08 Urine - Urine Clean Catch Urine Culture - Final Contaminated: Please Repeat Current Medications Acetaminophen (Tylenol -) 650 mg PO Q6H PRN PRN Reason: FEVER Last Admin: 09/19/18 08:58 Dose: 650 mg Albuterol/Ipratropium (Duoneb -) 1 amp NEB Q4H PRN PRN Reason: SHORTNESS OF BREATH Amlodipine Besylate (Norvasc -) 5 mg PO DAILY [facility] Last Admin: 04/15/18 10:19 Dose: 5 mg Atenolol (Tenormin -) 50 mg PO DAILY [facility] Last Admin: 04/15/18 10:19 Dose: 50 mg Atorvastatin Calcium (Lipitor -) 10 mg PO HS [facility] Last Admin: 04/14/18 22:12 Dose: 10 mg Benzocaine/Menthol (Cepacol Lozenge -) 1 each MM Q6H PRN PRN Reason: SORE THROAT Finasteride (Proscar -) 5 mg PO DAILY [facility] Last Admin: 04/15/18 10:19 Dose: 5 mg Guaifenesin (Robitussin -) 10 ml PO Q6H PRN PRN Reason: COUGH Last Admin: 04/15/18 07:02 Dose: 10 ml Levofloxacin (Levaquin 500 Mg Premixed Ivpb -) 500 mg in 100 mls @ 100 mls/hr IVPB DAILY [facility]; Protocol Last Admin: 04/15/18 10:19 Dose: 100 mls/hr Latanoprost (Xalatan 0.005% Eye Drops -) 1 drop OD HS [facility] Last Admin: 04/14/18 22:12 Dose: 1 drop Levothyroxine Sodium (Synthroid -) 25 mcg PO DAILY@0700 [facility] Last Admin: 04/15/18 06:55 Dose: 25 mcg Losartan Potassium (Cozaar -) 50 mg PO DAILY [facility] Last Admin: 04/15/18 10:19 Dose: 50 mg Methylprednisolone Sodium Succinate (Solu-Medrol -) 20 mg IVPUSH DAILY [facility] Stop: 04/17/18 10:01 a/p legionella pneumonia-day #4 treatment iv levaquin continued improvement anticipate switch to po levaquin in am, plan total 10 days of treatment add probiotics for one month legionella serology and sputum ordered +CPK- mild rhabdomyolysis please call back if needed Problem List - Problems (1) Fever Code(s): R50.9 - FEVER, UNSPECIFIED (2) Dehydration Code(s): E86.0 - DEHYDRATION (3) Hyponatremia Code(s): E87.1 - HYPO-OSMOLALITY AND HYPONATREMIA
[2018-04-15] MEDS: ATORVASTATIN CA 10 MG TABLET (FP) PO SCH (21:15)
[2018-04-15] MEDS: LATANOPROST 0.005% OPHTH SOLN 2.5ML BOTTLE OD SCH (21:15)
[2018-04-16] MEDS: guaiFENesin 200 MG/10 ML 10 ML UNIT-DOSE CUPS PO PRN ×2 (05:52→21:22)
[2018-04-16] MEDS: LEVOTHYROXINE NA 25 MCG TABLET (FP) PO SCH (05:59)
[2018-04-16 07:19] LABS: ALBUMIN 2.5 g/dl (3.4-5.0); ALK PHOS 118 U/L (45-117); ANION GAP 10 MMOL/L (8-16); BILIRUBIN,TOTAL 0.4 mg/dL (0.2-1); BLOOD UREA NITROGEN 26 mg/dL (7-18); CALCIUM 8.3 mg/dL (8.5-10.1); CHLORIDE 103 mmol/L (98-107); CO2 24 mmol/L (21-32); CREATININE 0.9 mg/dL (0.55-1.3); GLUCOSE,RANDOM 109 mg/dL (74-106); POTASSIUM 4.3 mmol/L (3.5-5.1); SGOT/AST 133 U/L (15-37); SGPT/ALT 161 U/L (13-61); SODIUM 137 mmol/L (136-145); TOT PROT 5.7 g/dl (6.4-8.2)
[2018-04-16] MEDS ORDERED: PT OWN MED DRAWER 7, Y5N ONE (09:27)
[2018-04-16] MEDS: amLODIPine BESYLATE 5 MG TABLET (FP) PO SCH (09:28)
[2018-04-16] MEDS: FINASTERIDE 5 MG TABLET (FP) PO SCH (09:28)
[2018-04-16] MEDS: LOSARTAN POTASSIUM 50 MG TABLET (FP) PO SCH (09:28)
[2018-04-16] MEDS: LACTOBACILLUS ACIDOPHILUS 1 TABLET PO SCH (09:28)
[2018-04-16] MEDS: ATENOLOL 50 MG TABLET (FP) PO SCH (09:28)
--- NOTE | 2018-04-16 09:49 | PN ---
Progress Note, Physician History of Present Illness: pulmonary alert,feeling better,comfortable,-resp distress - Current Medication List Current Medications: Active Medications Acetaminophen (Tylenol -) 650 mg PO Q6H PRN PRN Reason: FEVER Last Admin: 04/13/18 08:58 Dose: 650 mg Albuterol/Ipratropium (Duoneb -) 1 amp NEB Q4H PRN PRN Reason: SHORTNESS OF BREATH Amlodipine Besylate (Norvasc -) 5 mg PO DAILY [facility] Last Admin: 04/16/18 09:28 Dose: 5 mg Atenolol (Tenormin -) 50 mg PO DAILY [facility] Last Admin: 04/16/18 09:28 Dose: 50 mg Atorvastatin Calcium (Lipitor -) 10 mg PO HS [facility] Last Admin: 04/15/18 21:15 Dose: 10 mg Benzocaine/Menthol (Cepacol Lozenge -) 1 each MM Q6H PRN PRN Reason: SORE THROAT Finasteride (Proscar -) 5 mg PO DAILY [facility] Last Admin: 04/16/18 09:28 Dose: 5 mg Guaifenesin (Robitussin -) 10 ml PO Q6H PRN PRN Reason: COUGH Last Admin: 04/16/18 05:52 Dose: 10 ml Levofloxacin (Levaquin 500 Mg Premixed Ivpb -) 500 mg in 100 mls @ 100 mls/hr IVPB DAILY [facility]; Protocol Last Admin: 04/16/18 09:28 Dose: 100 mls/hr Lactobacillus Acidophilus (Bacid -) 1 tab PO DAILY [facility] Last Admin: 04/16/18 09:28 Dose: 1 tab Latanoprost (Xalatan 0.005% Eye Drops -) 1 drop OD HS [facility] Last Admin: 04/15/18 21:15 Dose: 1 drop Levothyroxine Sodium (Synthroid -) 25 mcg PO DAILY@0700 [facility] Last Admin: 04/16/18 05:59 Dose: 25 mcg Losartan Potassium (Cozaar -) 50 mg PO DAILY [facility] Last Admin: 04/16/18 09:28 Dose: 50 mg Methylprednisolone Sodium Succinate (Solu-Medrol -) 20 mg IVPUSH DAILY [facility] Stop: 04/17/18 10:01 - Objective Vital Signs: Vital Signs Temperature 98.1 F 04/16/18 05:00 Pulse Rate 65 04/16/18 05:00 Respiratory Rate 16 04/16/18 05:00 Blood Pressure 148/75 04/16/18 05:00 O2 Sat by Pulse Oximetry (%) 94 L 04/15/18 21:00 Constitutional: Yes: Well Nourished, Calm Eyes: Yes: WNL HENT: Yes: WNL Neck: Yes: WNL Cardiovascular: Yes: Regular Rate and Rhythm, S1, S2 Respiratory: Yes: Rales (few crackles rul) Gastrointestinal: Yes: Normal Bowel Sounds, Soft Extremities: Yes: WNL Edema: No Labs: CBC, BMP 04/16/18 05:30 - ....Imaging Chest X-ray: Report Reviewed, Image Reviewed Problem List - Problems (1) Pneumonia Code(s): J18.9 - PNEUMONIA, UNSPECIFIED ORGANISM (2) Dehydration Code(s): E86.0 - DEHYDRATION (3) Elevated troponin Code(s): R74.8 - ABNORMAL LEVELS OF OTHER SERUM ENZYMES (4) Fever Code(s): R50.9 - FEVER, UNSPECIFIED (5) HTN (hypertension) Code(s): I10 - ESSENTIAL (PRIMARY) HYPERTENSION (6) Lightheadedness Code(s): R42 - DIZZINESS AND GIDDINESS (7) 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 Assessment/Plan IMP ACUTE HYPOXEMIC RESPIRATORY FAILURE IMPROVING RUL PNEUMONIA LEGIONELLA CLINICALLY IMPROVING HTN +TROPONINS DINORAH PLAN ABX SUPPLEMENTAL O2 INHALED BRONCHODILATORS PRN MONITOR LYTES F/U CHEST X-RAYS d/c gama HUNT Problem List - Problems (1) Pneumonia Code(s): J18.9 - PNEUMONIA, UNSPECIFIED ORGANISM (2) Dehydration Code(s): E86.0 - DEHYDRATION (3) Elevated troponin Code(s): R74.8 - ABNORMAL LEVELS OF OTHER SERUM ENZYMES (4) Fever Code(s): R50.9 - FEVER, UNSPECIFIED (5) HTN (hypertension) Code(s): I10 - ESSENTIAL (PRIMARY) HYPERTENSION (6) Lightheadedness Code(s): R42 - DIZZINESS AND GIDDINESS (7) 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
[2018-04-16] MEDS: LATANOPROST 0.005% OPHTH SOLN 2.5ML BOTTLE OD SCH (21:15)
[2018-04-16] MEDS: ATORVASTATIN CA 10 MG TABLET (FP) PO SCH (21:15)
[2018-04-17] MEDS: LEVOTHYROXINE NA 25 MCG TABLET (FP) PO SCH (06:01)
[2018-04-17] MEDS: ATENOLOL 50 MG TABLET (FP) PO SCH (09:01)
[2018-04-17] MEDS: amLODIPine BESYLATE 5 MG TABLET (FP) PO SCH (09:01)
[2018-04-17] MEDS: LACTOBACILLUS ACIDOPHILUS 1 TABLET PO SCH (09:01)
[2018-04-17] MEDS: LOSARTAN POTASSIUM 50 MG TABLET (FP) PO SCH (09:01)
[2018-04-17] MEDS: guaiFENesin 200 MG/10 ML 10 ML UNIT-DOSE CUPS PO PRN (09:01)
[2018-04-17] MEDS: FINASTERIDE 5 MG TABLET (FP) PO SCH (09:01)
[2018-04-17 09:36] VITALS: BP 152/74; PULSE 62; TEMP 98
== END 2018-04-17 10:03 | disposition home or self-care (01) | DRG 177 ==
LOC: JER 13:17 → JERBED 15:50 → J7W 18:35 → J4W 04-11 10:09
PROVIDERS: ADMIT Family Medicine; ATTEND Family Medicine
DX: A48.1 Legionnaires' disease (principal); J96.01 Acute respiratory failure with hypoxia; G92 Toxic encephalopathy; N17.9 Acute kidney failure, unspecified; I24.8 Other forms of acute ischemic heart disease; E87.1 Hypo-osmolality and hyponatremia; M62.82 Rhabdomyolysis; R50.9 Fever, unspecified; R53.1 Weakness; I10 Essential (primary) hypertension; E78.5 Hyperlipidemia, unspecified; E03.9 Hypothyroidism, unspecified; N40.0 Benign prostatic hyperplasia without lower urinary tract symptoms
CPT/HCPCS: 36415; 71045-TC-FY; 71260-TC; 74177-TC; 76705-TC; 80053; 80061; 81003; 81015; 82550; 82553; 82570; 83036; 83605; 83721; 83735; 83930; 83935; 84100; 84156; 84300; 84443; 84484; 84540; 85025; 85027; 85651; 86140; 86713; 87040; 87070; 87086; 87205; 87207; 87804; 87899; 93005; 93010; 93306-TC; 94640; 97116-GP; 97161-GP; 99284-25; J0131; J7030; J7620

== ENCOUNTER 2018-11-16 06:18 | Day surgery (SDC) | payer OTHER, MEDICARE ==
[2018-11-15 10:09] VITALS: BMI 26.4
[2018-11-16] MEDS ORDERED: SODIUM CHLORIDE 0.9% P/F 10 ML VIAL IJ ONE (07:18)
[2018-11-16] MEDS ORDERED: ceFAZolin SODIUM 1 GM VIAL ONE ×2 (07:18→08:33)
[2018-11-16] MEDS ORDERED: SUCCINYLCHOLINE CHLORIDE 200 MG/10 ML VIAL ONE (07:19)
[2018-11-16] MEDS ORDERED: PROPOFOL 20 ML ONE ×2 (07:20→08:22)
[2018-11-16] MEDS ORDERED: LIDOCAINE HCL 1%, 10 MG/ML (20ML VIAL) ONE (07:40)
[2018-11-16] MEDS ORDERED: BUPIVACAINE HCL/PF 0.5% (5MG/ML) 10 ML VIAL ONE (07:40)
--- NOTE | 2018-11-16 08:14 | HP ---
Satellite [facility] - Chief Complaint Chief Complaint: left ring trigger finger, pain History of Present Illness: left ring trigger finger History Source: Patient Limitations to Obtaining History: No Limitations - Past Medical History Allergies/Adverse Reactions: Allergies Allergy/AdvReac Type Severity Reaction Status Date / Time No Known Drug Allergies Allergy Verified 11/16/18 06:40 Cardiovascular: Yes: HTN, Hyperlipdemia Renal/: Yes: BPH. No: Renal Inusuff Endocrine: Yes: Hypothyroidism. No: Diabetes Mellitus - Current Medications Current Medications: Home Medications Medication Instructions Recorded Atenolol [Tenormin -] 25 mg PO DAILY 07/10/14 Atorvastatin Ca [Lipitor] 20 mg PO HS 07/10/14 Cholecalciferol (Vitamin D3) 14,000 unit PO DAILY 07/10/14 [Children's Replesta] Finasteride [Proscar -] 5 mg PO HS 07/10/14 Levothyroxine [Synthroid -] 25 mcg PO DAILY 07/10/14 Silodosin [Rapaflo] 8 mg PO HS 07/10/14 Amlodipine Bes/Olmesartan Med 1 each PO DAILY 04/10/18 [Amlodipine-Olmesartan 5-40 mg] Latanoprost 0.005% Eye Drops 1 drop OD HS 04/12/18 [Xalatan 0.005% Eye Drops -] Aspirin Coated [Ecotrin -] 81 mg PO DAILY 11/15/18 Satellite Physical Exam - Physical Examination Vital Signs: Vital Signs Period Temp Pulse Resp BP Sys/Lira Pulse Ox Last 24 Hr 97.3 F 52 16 142/63 96 General Appearance: Well Nourished ENT: Clear Lung: Clear to auscultation Heart: Regular rate & rhythm Breasts: Soft Abdomen: Soft Extremities: No edema Satellite Impression/Plan - Impression/Plan Impression: left ring trigger finger Operative Procedure: left ring finger trigger release Date to be Performed: 11/16/18
[2018-11-16] MEDS ORDERED: BUPIVACAINE HCL/PF (5 MG/ML) 30 ML VIAL IJ ONE (08:43)
[2018-11-16] MEDS ORDERED: LIDOCAINE HCL 1%, 10 MG/ML (50 mL VIAL) IJ ONE (08:43)
--- NOTE | 2018-11-16 08:51 | OP ---
Operative Note - Note: Operative Date: 11/16/18 Pre-Operative Diagnosis: left ring finger trigger finger Operation: left ring finger trigger finger release, tendon sheath excision Post-Operative Diagnosis: Same as Pre-op Surgeon: Prasanth Hayden Anesthesiologist/SAFETY INSTRUCTOR: Errol Lowry Anesthesia: Local, MAC Specimens Removed: tendon sheath Estimated Blood Loss (mls): 0 Drains, Volume Out (mls): 0 Blood Volume Replaced (mls): 0 Fluid Volume Replaced (mls): 500 Operative Report Dictated: Yes
[2018-11-16 10:00] VITALS: TEMP 97.3
--- NOTE | 2018-11-16 10:00 | SPEC ---
DATE OF OPERATION: 11/16/2018 PREOPERATIVE DIAGNOSIS: Left ring finger trigger-finger. POSTOPERATIVE DIAGNOSIS: Left ring finger trigger-finger. PROCEDURE: Left ring finger trigger-finger release and tendon sheath excision. SURGEON: Melchor Leigh MD CATTLE FARMER: None. RAILCAR BRAKE OPERATOR: Errol Lowry CRNA ANESTHESIA: MAC anesthesia with local injection of 9 mL of 0.5% Marcaine 1% lidocaine mixed. DRAINS: None. COMPLICATIONS: None. SPECIMEN: Tendon sheath left ring finger. BLOOD LOSS: None. BLOOD GIVEN: None. FLUID REPLACEMENT: 500 mL. INDICATIONS: This patient is an 88-year-old male with a preoperative diagnosis of a severe left ring finger trigger-finger. After understanding the potential risks, complications, benefits, alternatives, benefits of the surgery vs. non-surgical treatment, the patient elected to undergo this procedure. DESCRIPTION OF PROCEDURE: The patient was brought to the operating room, IV was placed, IV sedation was given. One gram of intravenous Ancef given. A tourniquet was applied to the left upper arm and the left upper extremity was prepped and draped in sterile fashion. The entire case was done under 3.8 loupe magnification. A marking pen was utilized to abiodun out a longitudinal incision in an already existing skin crease at the base of the left ring finger. Then 10 mL of 0.5% Marcaine mixed with 1% Lidocaine was injected in and around the incision. The left upper extremity was elevated, exsanguinated with an Esmarch bandage and the tourniquet inflated to 250 mmHg. A No. 15 scalpel blade was utilized to cut down through the skin. Subcutaneous hemostasis was achieved with the bipolar cautery. Additional dissection was done with Littler scissors until I was able to directly visualize the A1 sebas sheath in its entirety. Self-retaining retractors were placed into the wound. A free air elevator was used to free up the tissue on the radial side, the ulnar side distally and proximally under better visualization of A1 sebas sheath. Next, using a fresh No. 15 scalpel blade, I excised the central one-third of the A1 sebas sheath and passed it off the field as specimen, tendon sheath, left ring finger. I then completed the release, both distally and proximally, and brought the FDS and FDP tendons out through the wound with a Ragnell retractor. There were no abnormal points of compression. I was able to move the left ring finger without the tendons bunching up at all. The area was then copiously irrigated and washed out. I then checked one more time to make sure there were no abnormal points of compression. None were seen and therefore closure was begun. One stitch using 4-0 Vicryl was used in the deep dermal layer. Skin was reapproximated with 4-0 Nylon sutures in a horizontal mattress fashion. The area was then washed and dried, covered with Xeroform gauze, sterile 4x4s, fluffs between the fingers, Webril and Coban. The tourniquet was taken down after a total tourniquet time of 15 minutes. There were no complications during the case. The patient tolerated the procedure well and was brought to the Ambulatory recovery Room in stable condition. MELCHOR LEIGH M.D. [id number]
[2018-11-16] MEDS ORDERED: ONDANSETRON 4 MG/2 ML VIAL IVPUSH PRN (10:30)
[2018-11-16] MEDS ORDERED: LACTATED RINGERS SOLUTION 1,000 ML IV SCH (10:30)
[2018-11-16] MEDS ORDERED: oxyCODONE HCL 5 MG TABLET PO PRN (10:30)
[2018-11-16 10:39] VITALS: BP 147/67; PULSE 44
--- NOTE | 2018-11-17 12:22 | PATH ---
Surgical Pathology Report Patient Name: SAFIA LAGUERRE [facility]. Rec. #: [id number] /Age/Gender: 1930 (Age: 88) / M Account: [id number] Location: [facility] SURGICAL Taken: 11/16/2018 Received: 11/16/2018 Reported: 11/17/2018 Physicians: Prasanth Hayden M.D. Specimen(s) Received LEFT 4TH FINGER TENDON SHEATH Clinical History Trigger finger left fourth finger Final Diagnosis SOFT TISSUE, LEFT FOURTH FINGER, EXCISION: TENOSYNOVIUM WITH AREAS OF MYXOID DEGENERATIVE CHANGES. Electronically Signed Behzad Fry M.D. Gross Description Received in formalin labeled "left fourth finger tendon sheath," are 2 del rosario portions of soft tissue averaging 0.6 cm in greatest dimension. The specimens are submitted in toto in one cassette. /11/16/201811/16/2018
== END 2018-11-16 10:30 | disposition home or self-care (01) ==
LOC: JASU-SURG 06:18
PROVIDERS: ATTEND Orthopaedic Surgery
PROC: 0LN80ZZ Release Left Hand Tendon, Open Approach (ICD-10-PCS; principal; 2018-11-16 08:00)
DX: M65.342 Trigger finger, left ring finger (principal)
CPT/HCPCS: 88304-TC; 94760